=== PATIENT | male | born 1965 | race Caucasian/White ===

== ENCOUNTER 2022-04-24 13:33 | Outpatient (CLI) | payer OTHER, SELFPAY ==
--- NOTE | ~2022-04-24 | CT_ITS ---
EXAMINATION: CT lung screening DATE: 04/24/2022 14:21 INDICATION: Personal history of nicotine dependence, current smoker with 20 pack year history TECHNIQUE: Computed tomography (CT) of the chest was performed without intravenous contrast. The dose -length product (DLP) was 147.57 mGy-cm. Automated exposure control and iterative reconstruction tech [employer] were employed. COMPARISON: None FINDINGS: There is a 2 mm nodule of the right middle lobe. Calcified pulmonary nodules are consistent with old granulomatous disease. The lungs are free of acute opacities. No pleural effusion or pneumo thorax. There is a small sliding hiatal hernia. No pathologically enlarged thoracic lymph nodes are i dentified. The heart size is normal. Calcified coronary artery atherosclerosis is noted. There is mod erate thoracic spondylosis. IMPRESSION: 1. Lung-RADS category 2: Benign appearance or behavior. Continue annual screening with noncontrast lo w-dose chest CT in 12 months. Reviewed, dictated and finalized at location B. BILITATION TECH IMPRESSION: 1. Lung-RADS category 2: Benign appearance or behavior. Continue annual screeni ng with noncontrast low-dose chest CT in 12 months.
--- NOTE | ~2022-04-24 | US_ITS ---
EXAMINATION: US soft tissue LE RT DATE: 04/24/2022 14:36 INDICATION: Interval right thigh pain TECHNIQUE: Multiple grayscale and Doppler ultrasound images of the region of concern at the inner rig ht thigh were obtained. COMPARISON: None FINDINGS: Normal appearance to the subcutaneous fat and underlying musculature at the region of concern. Lesser flow seen on color Doppler in a pair of vessels along side the muscle likely the right superficial f emoral artery and vein. No abnormal masses or fluid collections identified. IMPRESSION: 1. Unremarkable study with no abnormal masses or fluid collections identified at the region of concer n at the inner right thigh. Reviewed, dictated and finalized at location A. [employer] IMPRESSION: 1. Unremarkable study with no abnormal masses or fluid collections identified a t the region of concern at the inner right thigh.
== END 2022-04-24 13:34 | disposition home or self-care (01) ==
PROVIDERS: PCP Internal Medicine; Visit Provider Internal Medicine
DX: Z12.2 Encounter for screening for malignant neoplasm of respiratory organs (principal); Z87.891 Personal history of nicotine dependence; M79.651 Pain in right thigh
CPT/HCPCS: 71271; 76882

== ENCOUNTER 2022-06-07 08:17 | Emergency (ER) | payer OTHER, SELFPAY ==
[2022-06-07 08:26] VITALS: BP 113/72; PULSE 75; RESP 16; TEMP 35.8; O2SAT 99
--- NOTE | 2022-06-07 08:28 | ED.EAR ---
HPI - Ear Problem General Chief complaint: Upper Respiratory Infection Stated complaint: Right ear pressure Time Seen by Provider: 06/07/22 08:37 Source: patient and RN notes reviewed Mode of arrival: ambulatory Limitations: no limitations History of Present Illness HPI Narrative: 56-year-old male presents with concern for right ear pressure. He reports he also has runny nose, stuffy nose and cough. He reports symptoms for 2-3 days. He denies taking any [id number] medications for his symptoms. MD Complaint: ear pain Related Data Allergies Allergy/AdvReac Type Severity Reaction Status Date / Time No Known Allergies Allergy Verified 06/07/22 08:32 Review of Systems Review of Systems: CONSTITUTIONAL: Denies malaise, chills, sweats, or fever. EYES: Denies visual changes, redness, or discharge. ENT: Reports rhinorrhea, congestion. Denies sinus pain, and sore throat. Reports right ear pain CARDIOVASCULAR: Denies chest pain, palpitations, or edema. RESPIRATORY: Reports cough. Denies dyspnea. GASTROINTESTINAL: Denies abdominal pain, nausea, vomiting, diarrhea SKIN: Denies rash or itching. MUSCULOSKELETAL: Denies myalgia. NEUROLOGIC: Denies headache. All systems reviewed & are unremarkable except as noted in HPI and below PMFSH Past Medical History Medical History Afib Diverticulitis Tobacco use Tobacco use Surgical History Surgical History History of appendectomy History of removal of skin mole History of vasectomy Family History Family History Mother Family history of schizophrenia Social History Social History (Updated 04/18/22 @ 10:58 by Lena Arriaza MA) Smoking packs per day: 1 Smoking cigarettes per day: 20.0 Years smoked: 30 Smoking pack-years: 30.00 Smoking status: Current every day smoker Tobacco type: cigarettes Second hand tobacco smoke exposure: No Alcohol intake: never Substance use: never Substance use type: does not use Lack of Transportation: No Lack of Food: Never True Current Housing: I Have Housing Concerned About Future Housing: No Difficulty Paying Gas/Electric Bills: No Difficulty Paying for Meds: No Currently Unemployed: No Education: Bachelor's Degree Difficulty w/ Childcare or Family Care: No Comments At time of signature, agree with nursing past medical, surgical, social and family history. There is no relevant family history pertinent to the presenting complaint Exam Narrative: GENERAL: Well-appearing, well-nourished, and in no acute distress. HEAD: Normocephalic EYES: PERRLA, conjunctivae clear ENT: Nares clear, turbinates edematous, clear discharge. Mucous membranes moist. TM pearly solis with dull light reflex, right TM erythematous and bulging; no tragal tenderness. Oropharynx not erythematous without lesions. Tonsils not enlarged and without exudate, no drooling, no hoarseness, no trismus, uvula midline. NECK: Supple. No lymphadenopathy CHEST: Clear to auscultation, breath sounds equal. No wheezing, rhonchi, rales, or stridor. No respiratory distress, speaks in full sentences. HEART: Regular rate and rhythm. No murmur heard. SKIN: Warm, dry, no rash. NEURO: Alert and oriented x3. PSYCH: Normal mood and affect Course Course Emergency Course: Patient is aware of diagnosis, understands and agrees to treatment plan. Anticipatory guidance given. Patient agrees to follow-up as directed and is aware of reasons to seek care at the emergency department. Portions of this record may have been created with voice recognition software Level of Care: Express Care Visit Vital Signs Vital signs: Vital Signs Temperature 96.4 F L 06/07/22 08:26 Pulse Rate 75 06/07/22 08:26 Respiratory Rate 16 06/07/22 08:26 Blood Pressure 113/72 06/07/22 08:26 Pulse Oximetry 99 06/07/22 08:26 Oxygen Delivery Room Air
== END 2022-06-07 08:45 | disposition home or self-care (01) ==
PROVIDERS: Emergency Provider Nurse Practitioner; PCP Internal Medicine
DX: H66.91 Otitis media, unspecified, right ear (principal); F17.210 Nicotine dependence, cigarettes, uncomplicated; I48.91 Unspecified atrial fibrillation
CPT/HCPCS: 99213; G0463

== ENCOUNTER 2023-02-01 09:42 | Inpatient (IN) | payer OTHER, SELFPAY ==
[2023-02-01] VITALS (19 sets, daily range): BP systolic 101–135; BP diastolic 55–78; PULSE 100–128; RESP 12–21; TEMP 36.2–37.4; O2SAT 96–100; BMI 31.2
--- NOTE | ~2023-02-01 | CT_ITS ---
EXAMINATION: CT abdomen pelvis w con DATE: 02/01/2023 12:58 INDICATION: Left abdominal pain. Gastrointestinal hemorrhage. TECHNIQUE: Computed tomography (CT) of the abdomen and pelvis was performed with 100 mL Omnipaque 350 intravenous contrast. Automated exposure control and iterative reconstruction technique were employe d. The dose-length product was 899.74 mGy-cm. COMPARISON: CT abdomen and pelvis 05/17/2017 FINDINGS: The visualized portions of the lung bases demonstrate mild atelectasis. No pleural effusion . The heart size is normal. No pericardial effusion. There is a small sliding hiatal hernia. There is diffuse hepatic steatosis. The gallbladder, spleen, pancreas, adrenal glands, and left kidney are no rmal. There is an 11 mm cyst in left kidney. There is a 3 mm stone in right kidney. There are scatter ed diverticula in the colon. There is fat stranding around a sigmoid diverticulum, consistent with ac [place] diverticulitis. There are changes of appendectomy. There are changes of ventral hernia repair. Th e prostate is moderately enlarged. There are no pathologically enlarged lymph nodes. There is no free intraperitoneal fluid. There is a right inguinal hernia containing fat. There is mild thoracic and l umbar spondylosis. IMPRESSION: 1. Acute sigmoid diverticulitis. No perforation or abscess. 2. Small sliding hiatal hernia. Reviewed, dictated and finalized at location A.
--- NOTE | ~2023-02-01 | NM_ITS ---
EXAMINATION: NM GI bleeding DATE: 02/03/2023 12:42 INDICATION: Gastrointestinal hemorrhage. TECHNIQUE: 23.4 mCi Tc 99m in vitro labeled red cells was administered intravenously. Scintigraphic images of the abdomen were obtained for one hour. COMPARISON: CT abdomen and pelvis 02/01/2023 FINDINGS: No pattern of abnormal activity is seen in the abdomen or pelvis to suggest gastrointestina l hemorrhage. IMPRESSION: 1. No evidence of active gastrointestinal hemorrhage. Reviewed, dictated and finalized at location A.
[2023-02-01 10:41] LABS: Basophils Percent Auto 0.4 % (0.2-1.2); Eosinophils Absolute Auto 0.4 K/mm3 (0-0.3); Hematocrit 21.7 % (42.0-52.0); Hemoglobin 7.2 g/dL (14.0-18.0); Immature Granulocyte Absolute 0.13 K/mm3 (0.00-0.031); Immature Granulocyte Percent A 1.4 % (0-0.5); Lymphocytes Absolute Auto 2.78 K/mm3 (0.9-3.2); Lymphocytes Percent Auto 29.2 % (18.3-44.2); Mean Corpuscular HGB Conc 33.2 g/dl (32-36); Mean Corpuscular Hemoglobin 31.7 pg (26-34); Mean Corpuscular Volume 95.6 fl (80-100); Mean Platelet Volume 9.7 fl (7.4-10.4); Monocytes Absolute Auto 1.1 K/mm3 (0.1-0.6); Monocytes Percent Auto 11.2 % (2.6-8.5); Neutrophils Absolute Auto 5.1 K/mm3 (1.3-6.7); Neutrophils Percent Auto 53.8 % (45.5-73.1); Nucleated Red Blood Cells Absolute Auto 0.1 K/mm3 (0.0-0.012); Nucleated Red Blood Cells Perc 0.5 % (0.0-0.2); Platelet Count Result 237 k/mm3 (150-375); Red Blood Count 2.27 M/mm3 (4.6-6.20); White Blood Count 9.5 K/mm3 (4.5-10.0)
[2023-02-01 10:51] LABS: Alanine Aminotransferase 42 U/L (6-50); Albumin Level 3.3 g/dL (3.5-5.1); Alkaline Phosphatase 44 U/L (38-126); Anion Gap 2 mmol/L (8-16); Aspartate Amino Transferase 30 U/L (17-59); Bilirubin,Total 0.2 mg/dL (0.2-1.3); Blood Urea Nitrogen 20 mg/dL (9-20); Calcium 7.9 mg/dL (8.4-10.2); Carbon Dioxide 24 mmol/L (22-30); Chloride 106 mmol/L (98-107); Estimated CRCL calculation 85 ml/min; Estimated Glomerular Filt Rate > 60; Glucose 179 mg/dL (65-110); Potassium 4.1 mmol/L (3.4-5.0); Sodium 132 mmol/L (137-145)
--- NOTE | 2023-02-01 12:14 | ED.GENADULT ---
HPI - General Adult General Chief complaint: GI Bleed <DAVID Maria Last Filed: 02/01/23 17:50> Stated complaint: bloody stool for 4 days <DAVID Maria Last Filed: 02/01/23 17:50> Time Seen by Provider: 02/01/23 11:53 <DAVID Maria Last Filed: 02/01/23 17:50> Source: patient <DAVID Maria Last Filed: 02/01/23 17:50> Mode of arrival: ambulatory <DAVID Maria Last Filed: 02/01/23 17:50> Limitations: no limitations <DAVID Maria Last Filed: 02/01/23 17:50> History of Present Illness HPI narrative: This is a 57-year-old male who presents to the ED with chief complaint of bloody stools for the past 4 days. He states he has had multiple stools per day that have purple/red blood in the toilet and feels that these most solid parts of the stool are black in color. He reports some associated left lower quadrant pain and states he has had diverticulitis in the past. He states pain is minimal at this point. He reports visiting [place] last week and had a lot of oysters while he was there. States symptoms started about 2 days after returning back from there. <DAVID Maria Last Filed: 02/01/23 17:50> Related Data Home medications: Home Medications Medication Instructions Recorded Confirmed multivit with minerals-iron 18 1 tablet PO DAILY 02/01/23 02/01/23 mg-folic ac 400 mcg-vit K 25 mcg tablet (Adults Multivitamin) omega-3 fatty acids 500 mg capsule 500 mg PO DAILY 02/01/23 02/01/23 <DAVID Maria Last Filed: 02/01/23 17:50> Allergies/adverse reactions: Allergies Allergy/AdvReac Type Severity Reaction Status Date / Time No Known Allergies Allergy Verified 10/24/22 11:09 <DAVID Maria Last Filed: 02/01/23 17:50> Review of Systems Review of Systems: All systems as dictated in HPI <Reinaldo Beaver PA-C - Last Filed: 02/01/23 17:50> PMFSH Past Medical History Medical History: Medical History Afib Diverticulitis Tobacco use Tobacco use <Reinaldo Beaver PA-C - Last Filed: 02/01/23 17:50> Surgical History Surgical History: Surgical History History of appendectomy History of removal of skin mole History of vasectomy <Reinaldo Beaver PA-C - Last Filed: 02/01/23 17:50> Family History Family History: Family History Mother Family history of schizophrenia <Reinaldo Beaver PA-C - Last Filed: 02/01/23 17:50> Social History Social History: Social History (Updated 04/18/22 @ 10:58 by Lena Arriaza MA) Smoking packs per day: 0.25 Smoking cigarettes per day: 5.0 Years smoked: 30 Smoking pack-years: 7.50 Smoking status: Current every day smoker Second hand tobacco smoke exposure: No Alcohol intake: never Substance use: never Substance use type: does not use Lack of Transportation: No Lack of Food: Never True Current Housing: I Have Housing Concerned About Future Housing: No Difficulty Paying Gas/Electric Bills: No Difficulty Paying for Meds: No Currently Unemployed: No Education: Bachelor's Degree Difficulty w/ Childcare or Family Care: No Spiritual care concerns: No <Reinaldo Beaver PA-C - Last Filed: 02/01/23 17:50> Exam Narrative: GENERAL: Well-appearing, well-nourished, and in no acute distress. HEAD: Normocephalic, atraumatic. EYES: PERRLA and EOMI. ENT: Nares clear, no rhinorrhea or epistaxis. Mucous membranes moist. Oropharynx without tonsillar hypertrophy exudate or other lesions. NECK: Supple. No adenopathy or masses. CHEST: No respiratory distress. Clear to auscultation. No wheezes rales or rhonchi HEART: Regular rate and rhythm. No murmur heard. Normal peripheral pulses. ABDOMEN: Mild left lower and left upper quadrant tenderness present. Soft, nondistended, normal active
[2023-02-01 12:58] LABS: Lactic Acid Reflex 1.7 mmol/L (0.7-2.0)
[2023-02-01] MEDS: PIPERACILLIN/TAZ 4.5G/NS 100ML 4.5 GM/100 ML BAG IVPB (14:54)
[2023-02-01 15:05] LABS: Hematocrit 19.5 % (42.0-52.0); Hemoglobin 6.4 g/dL (14.0-18.0)
--- NOTE | 2023-02-01 17:17 | ADMGEN ---
This patient, Xander Negrete, was admitted to 3 [facility] Surg Room 327-01. Patient/family oriented to hospital policies and general routines including ID bracelet, bed and alarms, visiting hours, pain management, procedures, bathroom and other care routines, personal items, smoking policy, room service/diet, and visiting hours. Information on how to activate the Rapid Response Team has been discussed. Patient/Family are encouraged to report perceived risks to care and to ask questions if they do not understand what they are told or what they should do.
[2023-02-01] MEDS: TUBING, BLOOD PLUM PUMP TUBING 1 EACH XX (17:54)
[2023-02-01] MEDS: SODIUM CHLORIDE 0.9% IV 250 ML 30 ML IV CONT (17:54)
--- NOTE | 2023-02-01 21:30 | PM.IMHP ---
H&P: HPI History of Present Illness Date/Time: 02/01/23 21:30 Chief Complaint: Bloody stools Narrative: This is a 57-year-old male patient who has a history of diverticulosis with diverticulitis. He has also had some colon polyps as well as some internal hemorrhoids in the past. He is seen Dr. Luna as well as Dr. Blue in the past. The patient stated that he has had bloody stools for last 4 days. He has had multiple stools that were maroon color. The patient stated that he did attempt to see a physician but could not get in anywhere. The patient also complained of having some left lower quadrant pain. The patient recently was and [place] and ate a lot of raw oysters air. His pain started approximately 2 days after returning home from [place]. His H&H was 7.2 and 21.7. No recent labs for comparison. The patient received a unit of packed red blood cells. His H&H was 6.4 and 19.5. Patient had a very large explosive bloody diarrhea stool and repeat H&H was 6.7 and 19.8. The patient was given a bolus of IV fluids. The patient feels dizzy and has tachycardia. GI has been consulted from ER. Abdominal pelvis CT was read as the following1. Acute sigmoid diverticulitis. No perforation or abscess. 2. Small sliding hiatal hernia. The patient was given Zosyn, IV fluids and a unit of packed red blood cells. The patient is being admitted to observation status on the date of service of 02/01/2023. Review of Systems Review of Systems: All systems reviewed & are unremarkable except as noted in HPI and below Constitutional: Constitutional: Reports as per HPI and Reports no additional constitutional complaints Eyes: Eyes: Reports as per HPI and Reports no additional eye complaints ENT: Reports system reviewed and no additional complaints, except as documented and Reports Normal hearing present Cardiovascular: Cardiovascular: Reports no additional cardiovascular complaints Respiratory: Respiratory: Reports no additional respiratory complaints and Reports no additional respiratory complaints Gastrointestinal: Gastrointestinal: Reports as per HPI and Reports no additional gastrointestinal complaints Musculoskeletal: Musculoskeletal: Reports no additional musculoskeletal complaints Integumentary/Breasts: Skin/Breast: Reports system reviewed and no additional complaints, except as docu and Reports as per HPI Neurologic: Reports system reviewed and no additional complaints, except as documented, Reports as per HPI and Reports Normal hearing present Psychiatric: Psychiatric: Reports no additional psychiatric complaints and Reports as per HPI Endocrine: Endocrine: Reports no additional endocrine complaints Hematologic/Lymphatic: Hematologic/Lymphatic: Reports no additional hematologic/lymphatic complaints Allergic/Immunologic: Allergic/Immunologic: Reports no additional allergic/immunologic complaints [facility] Past Medical History Medical History Afib One time episode and has not recurred. Degenerative disc disease Diverticulitis History of squamous cell carcinoma Removed from chest and face Hyperlipidemia Kidney stones BLOUNT (nonalcoholic steatohepatitis) Tobacco use Tobacco use Surgical History Surgical History (Updated 02/02/23 @ 00:25 by Karyn Arzate NP) H/O colonoscopy with polypectomy H/O hernia repair History of appendectomy History of removal of pigmented skin lesion History of removal of skin mole History of vasectomy Family History Family History Mother Family history of schizophrenia Social History Social History (Updated 02/02/23 @ 00:22 by Karyn Arzate NP) Social History: The patient is and has 3 children. 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 His is the durable power trademark attorney for healthcare. He smokes approximately 7 cigarettes a day if that. He denies any alcohol marijuana or illicit drugs. His wif
[2023-02-01 22:57] LABS: Hematocrit 19.8 % (42.0-52.0); Hemoglobin 6.7 g/dL (14.0-18.0)
[2023-02-02] VITALS (25 sets, daily range): BP systolic 101–136; BP diastolic 54–80; PULSE 77–123; RESP 12–22; TEMP 35.6–37.6; O2SAT 93–100
--- NOTE | 2023-02-02 00:31 | PC.NURSE ---
Pt. had a large BM with copious amount of blood in stool. Called Dr. Blue to notify.
[2023-02-02 00:57] LABS: Hematocrit 19.1 % (42.0-52.0); Hemoglobin 6.3 g/dL (14.0-18.0)
[2023-02-02] MEDS: SODIUM CHLORIDE 0.9% IV 1,000 ML 999 ML IV CONT (01:10)
[2023-02-02] MEDS: PIPERACILLN/TAZ 3.375GM/NS50ML 3.375 GM/50 ML BAG IVPB ×4 (01:56→17:55)
[2023-02-02] MEDS: SODIUM CHLORIDE 0.9% IV 250 ML 30 ML IV CONT ×2 (04:45→14:00)
[2023-02-02 07:02] LABS: Hematocrit 20.2 % (42.0-52.0); Hemoglobin 6.8 g/dL (14.0-18.0)
[2023-02-02 07:29] LABS: Glucose Point of Care 133 mg/dl (65-105)
[2023-02-02 07:34] LABS: Mean Platelet Volume 10.1 fl (7.4-10.4); Platelet Count Result 175 k/mm3 (150-375)
[2023-02-02 07:43] LABS: Alanine Aminotransferase 37 U/L (6-50); Albumin Level 2.6 g/dL (3.5-5.1); Alkaline Phosphatase 32 U/L (38-126); Anion Gap 0 mmol/L (8-16); Aspartate Amino Transferase 31 U/L (17-59); Bilirubin,Total 0.2 mg/dL (0.2-1.3); Blood Urea Nitrogen 16 mg/dL (9-20); Calcium 7.2 mg/dL (8.4-10.2); Carbon Dioxide 24 mmol/L (22-30); Chloride 107 mmol/L (98-107); Estimated CRCL calculation 107 ml/min; Estimated Glomerular Filt Rate > 60; Glucose 131 mg/dL (65-110); Magnesium 1.9 mg/dL (1.6-2.3); Potassium 3.9 mmol/L (3.4-5.0); Sodium 131 mmol/L (137-145)
[2023-02-02 07:55] LABS: Prothrombin Time 13.5 Seconds (11.1-14.7)
[2023-02-02 07:58] LABS: Fibrinogen 264 mg/dl (215-510)
[2023-02-02 08:08] LABS: D Dimer 0.31 ug/mL (<0.48)
--- NOTE | 2023-02-02 10:11 | WPDGICN ---
Assessment and Plan Assessment and plan (1) LGI bleed: Code(s): K92.2 - Gastrointestinal hemorrhage, unspecified Status: Acute Assessment and Plan: Patient with lower GI bleeding. Most likely felt to be from diverticular disease. Colon will be arranged to exclude any additional bleeding site. Nuclear but medicine bleeding scan will be ordered hopefully this can help pinpoint bleeding site. Continue to transfuse as necessary. Consider supportive care. Patient will be maintained on antibiotics for presumed diverticulitis. As suggested by recent imaging studies. Because of ongoing bleeding patient will be monitored in more acute setting. (2) Diverticulitis: Code(s): K57.92 - Diverticulitis of intestine, part unspecified, without perforation or abscess without bleeding Status: Acute Assessment and Plan: Diverticulitis noted on CT scan. Plan for broad-spectrum antibiotics. Long discussion with patient over risks of colonoscopy in the face of active diverticulitis. Discussed with primary care service. Plan to proceed with colonoscopy tomorrow in preparation today. GI Consult Note Consult date/time: 02/02/23 10:11 Reason for consult: Lower GI bleeding HPI: Xander Negrete is a 57 year old male I am asked to see at the request of the emergency room. Patient in usual state of health. Over the last 4-5 days he has had blood in his stools. Described as maroon bloody in nature. He states a short time ago was in [place]. No one else on the trip became ill. In the past he has had diverticulitis. He developed rather significant bloody stools for this reason presented to the emergency room yesterday after 4 days of blood in his stools. Patient was found to have a hemoglobin of 6.5. CT scan suggested possible uncomplicated diverticulitis. Patient is known to have had diverticulitis in the past. He has prior history of umbilical hernia repair. After transfusion of 2units of packed red blood cells his hemoglobin has remained stable. Patient did have bloody stools at midnight and no additional blood in his stools as of 10:00 a.m. this morning. He does feel as though he may have been need to pass additional stools. Current vital signs appears stable. Patient has never had lower GI bleeding previously. Previous colonoscopy 5 years ago Revealed diverticulosis and internal hemorrhoids.. He has a distant history of colon polyps. In 2006. Review of Systems Review of Systems: Review of systems noncontributory. [facility] Past Medical History Medical History Afib One time episode and has not recurred. Degenerative disc disease Diverticulitis History of squamous cell carcinoma Removed from chest and face Hyperlipidemia Kidney stones BLOUNT (nonalcoholic steatohepatitis) Tobacco use Tobacco use Surgical History Surgical History (Updated 02/02/23 @ 00:25 by Karyn Arzate NP) H/O colonoscopy with polypectomy H/O hernia repair History of appendectomy History of removal of pigmented skin lesion History of removal of skin mole History of vasectomy Family History Family History Mother Family history of schizophrenia Social History Social History (Updated 02/02/23 @ 00:22 by Karyn Arzate NP) Social History: The patient is and has 3 children. 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 His is the durable power disability attorney for healthcare. He smokes approximately 7 cigarettes a day if that. He denies any alcohol marijuana or illicit drugs. His is the durable power disability attorney for healthcare. Code status full code Smoking packs per day: 0.25 Smoking cigarettes per day: 5.0 Years smoked: 30 Smoking pack-years: 7.50 Smoking status: Current every day smoker Second hand tobacco smoke exposure: No Alcohol intake: never Substance use: never Substance use type: does
[2023-02-02 11:16] LABS: Glucose Point of Care 147 mg/dl (65-105)
--- NOTE | 2023-02-02 12:07 | PM.IMPN ---
Progress Note: A&P Assessment and Plan (1) Acute blood loss anemia: Code(s): D62 - Acute posthemorrhagic anemia Status: Acute Assessment and Plan: Transfused to hemoglobin over 8. DIC panel is unremarkable. Source of bleeding appears to be isolated lower GI bleeding likely diverticular as there are CT findings of diverticulitis. Repeat hemoglobin 7.9 after 3rd unit PRBCs. One additional unit is ordered and patient continues to have q.6 H&H ordered. (2) LGI bleed: Code(s): K92.2 - Gastrointestinal hemorrhage, unspecified Status: Acute Assessment and Plan: See 1. (3) Diverticulitis: Code(s): K57.92 - Diverticulitis of intestine, part unspecified, without perforation or abscess without bleeding Status: Acute Assessment and Plan: See 1. Patient on Zosyn IV. (4) Tobacco use: Code(s): Z72.0 - Tobacco use Status: Acute Assessment and Plan: Nicotine patch ordered (5) Type 2 diabetes mellitus without complication, without long-term current use of insulin: Code(s): E11.9 - Type 2 diabetes mellitus without complications Status: Acute Assessment and Plan: ACHS fingerstick glucose with corrective insulin and hypoglycemic orders p.r.n. Plan Transfuse to keep hemoglobin above 8 Nuclear med GI bleeding scan Discussed plan with Gastroenterology, patient will undergo bowel prep today and colonoscopy tomorrow. Time Spent With Patient Time: 75 minutes including time spent discussing case with consulting service, bedside evaluation chart review and documentation Time with patient: Greater than 35 minutes Subjective Date/time seen: 02/02/23 07:30 Interval history: 02/02: This is a 57-year-old male patient admitted to the hospital for GI bleeding ongoing for the last 4-5 days. Patient states that he had some abdominal aching there was concern whether he may have colitis from food-borne illness verses diverticulitis with diverticular bleed. Patient reports he had an episode of lightheadedness dizziness and significant blood loss with diarrheal stools just after midnight. He has received a couple units of PRBCs prior to evaluation this morning. Patient denies any fever chills. He denies anybody else getting ill having eaten the same things he had. He does report multiple episodes of diverticulitis without GI bleeding in the past. Review of Systems Review of Systems: All systems reviewed & are unremarkable except as noted in HPI and below Exam Narrative: GENERAL: Generally well appearing, alert and oriented, in no apparent distress. He is pleasant and conversant in full sentences. HEENT: Pupils are equally round and briskly reactive to light. Extraocular muscles are intact. Oral mucous membranes are moist without lesions. NECK: The patient has no noted JVD. No adenopathy is appreciated. CHEST/LUNGS: Lungs are clear bilaterally without rhonchi, rales, or wheezes. There is no subcutaneous air appreciated. There is no tenderness to the chest wall. HEART: The patient has a regular rate and rhythm. No murmurs, rubs, or gallops are appreciated. Distal pulses are 2+. No carotid bruits appreciated. ABDOMEN: The patient?s abdomen is soft, nontender, and nondistended. Bowel sounds are positive. There are no peritoneal signs. EXTREMITIES: The patient has no peripheral edema. There is no focal long bone tenderness or deformity. SKIN: The patient?s skin is warm and dry, mildly pale. PSYCHIATRIC: The patient has normal mental status and has an appropriate affect. NEUROLOGIC: There are no gross deficits to the cranial nerves. Patient ambulates with steady gait. OTHER: Ludwig red blood with clots in stools. Objective Data Vital Signs Vital Signs: Vital Signs - 24 hr 02/01/23 13:17 02/01/23 13:18 02/01/23 13:30 Temperature Pulse Rate 110 H 104 H 100 Respiratory Rate 16 16 15 Blood Pressure 135/78 Pulse Oximetry 100 100 100 Oxygen Delivery
[2023-02-02 12:32] LABS: Hemoglobin 7.9 g/dL (14.0-18.0)
--- NOTE | 2023-02-02 13:23 | PC.NURSE ---
This patient, Xander Negrete, was transferred to IMU 210 on 02/02/23 at 1315. Personal belongings sent with patient. Report given to Benja ANDERSON. Appropriate documentation sent with patient. Both IV sites intact at the time of transfer.
[2023-02-02] MEDS: PEG (High)/E-LYTE SOLN 4,000 ML BTL 4000 ML PO (13:29)
[2023-02-02 16:57] LABS: Glucose Point of Care 113 mg/dl (65-105)
[2023-02-02 19:18] LABS: Hemoglobin 6.7 g/dL (14.0-18.0)
[2023-02-02 19:19] LABS: Hematocrit 19.9 % (42.0-52.0)
[2023-02-02 20:23] LABS: Glucose Point of Care 143 mg/dl (65-105)
[2023-02-02] MEDS: TUBING, BLOOD PLUM PUMP TUBING 1 EACH XX (20:29)
[2023-02-03] VITALS (26 sets, daily range): BP systolic 87–137; BP diastolic 31–77; PULSE 77–118; RESP 8–20; TEMP 36.6–37.1; O2SAT 94–100
[2023-02-03] MEDS: SODIUM CHLORIDE 0.9% IV 250 ML 30 ML IV CONT ×2 (00:07→06:33)
[2023-02-03] MEDS: PIPERACILLN/TAZ 3.375GM/NS50ML 3.375 GM/50 ML BAG IVPB ×5 (00:23→23:11)
[2023-02-03 01:35] LABS: Hematocrit 19.5 % (42.0-52.0); Hemoglobin 6.6 g/dL (14.0-18.0)
[2023-02-03] MEDS: TUBING, BLOOD PLUM PUMP TUBING 1 EACH XX ×2 (02:35→12:29)
--- NOTE | 2023-02-03 04:36 | PC.NURSE ---
Blood bank issued blood. This nurse brought to unit and another patient was to be emergently intubated. [facility] needed to be with the other patient for transfer to ICU and she took the blood. After transfer complete this nurse went back to get blood and told it could not be reissued with a new issue time. Will speak to blood bank in regards to how long the blood can run and verify with grape pruner Brandy.
[2023-02-03 08:32] LABS: Basophils Percent Auto 0.4 % (0.2-1.2); Eosinophils Absolute Auto 0.1 K/mm3 (0-0.3); Eosinophils Percent Auto 0.9 % (0-4.4); Hematocrit 23.2 % (42.0-52.0); Hemoglobin 7.7 g/dL (14.0-18.0); Immature Granulocyte Absolute 0.15 K/mm3 (0.00-0.031); Lymphocytes Absolute Auto 1.83 K/mm3 (0.9-3.2); Lymphocytes Percent Auto 24.3 % (18.3-44.2); Mean Corpuscular HGB Conc 33.2 g/dl (32-36); Mean Corpuscular Hemoglobin 30.9 pg (26-34); Mean Corpuscular Volume 93.2 fl (80-100); Mean Platelet Volume 9.5 fl (7.4-10.4); Monocytes Absolute Auto 0.8 K/mm3 (0.1-0.6); Monocytes Percent Auto 10.1 % (2.6-8.5); Neutrophils Absolute Auto 4.7 K/mm3 (1.3-6.7); Neutrophils Percent Auto 62.3 % (45.5-73.1); Nucleated Red Blood Cells Absolute Auto 0.1 K/mm3 (0.0-0.012); Nucleated Red Blood Cells Perc 1.5 % (0.0-0.2); Platelet Count Result 155 k/mm3 (150-375); Red Blood Count 2.49 M/mm3 (4.6-6.20); Red Cell Distribution Width 13.5 % (11.5-14.5); White Blood Count 7.5 K/mm3 (4.5-10.0)
[2023-02-03 08:41] LABS: Alanine Aminotransferase 31 U/L (6-50); Albumin Level 2.5 g/dL (3.5-5.1); Alkaline Phosphatase 30 U/L (38-126); Anion Gap 1 mmol/L (8-16); Aspartate Amino Transferase 26 U/L (17-59); Bilirubin,Total 0.3 mg/dL (0.2-1.3); Blood Urea Nitrogen 15 mg/dL (9-20); Carbon Dioxide 27 mmol/L (22-30); Chloride 105 mmol/L (98-107); Estimated CRCL calculation 96 ml/min; Estimated Glomerular Filt Rate > 60; Glucose 123 mg/dL (65-110); Magnesium 1.9 mg/dL (1.6-2.3); Phosphorus 3.9 mg/dL (2.5-4.5); Potassium 3.4 mmol/L (3.4-5.0); Sodium 133 mmol/L (137-145)
[2023-02-03 08:42] LABS: INR 1.1; Partial Thromboplastin Time 21.4 SECONDS (22.3-36.8)
--- NOTE | 2023-02-03 09:30 | PM.IMPN ---
Progress Note: A&P Assessment and Plan (1) Acute blood loss anemia: Code(s): D62 - Acute posthemorrhagic anemia Status: Acute Assessment and Plan: Transfused to hemoglobin over 8. DIC panel is unremarkable. Source of bleeding appears to be isolated lower GI bleeding likely diverticular as there are CT findings of diverticulitis. Repeat hemoglobin 7.9 after 3rd unit PRBCs. One additional unit is ordered and patient continues to have q.6 H&H ordered. 02/03: Hemoglobin 7.7 this morning. Sixth unit of PRBCs to transfuse. Continue Q6H H&H checks. GI bleeding scan to be completed this morning and colonoscopy this afternoon. (2) LGI bleed: Code(s): K92.2 - Gastrointestinal hemorrhage, unspecified Status: Acute Assessment and Plan: See 1. (3) Diverticulitis: Code(s): K57.92 - Diverticulitis of intestine, part unspecified, without perforation or abscess without bleeding Status: Acute Assessment and Plan: See 1. Patient on Zosyn IV. (4) Tobacco use: Code(s): Z72.0 - Tobacco use Status: Acute Assessment and Plan: Nicotine patch ordered (5) Type 2 diabetes mellitus without complication, without long-term current use of insulin: Code(s): E11.9 - Type 2 diabetes mellitus without complications Status: Acute Assessment and Plan: ACHS fingerstick glucose with corrective insulin and hypoglycemic orders p.r.n. Plan Transfuse to keep hemoglobin above 8 Nuclear med GI bleeding scan Colonoscopy this afternoon Time Spent With Patient Time with patient: Greater than 35 minutes Subjective Date/time seen: 02/03/23 09:30 Interval history: 02/02: This is a 57-year-old male patient admitted to the hospital for GI bleeding ongoing for the last 4-5 days. Patient states that he had some abdominal aching there was concern whether he may have colitis from food-borne illness verses diverticulitis with diverticular bleed. Patient reports he had an episode of lightheadedness dizziness and significant blood loss with diarrheal stools just after midnight. He has received a couple units of PRBCs prior to evaluation this morning. Patient denies any fever chills. He denies anybody else getting ill having eaten the same things he had. He does report multiple episodes of diverticulitis without GI bleeding in the past. 02/03: Patient had another episode of bloody diarrhea overnight. This morning was up to the bathroom had small amount of bloody stools but had an elevated heart rates and became dizzy after bending over to dress himself. Patient denies any shortness of breath fever chills cough chest pain abdominal pain. Review of Systems Review of Systems: All systems reviewed & are unremarkable except as noted in HPI and below Exam Narrative: GENERAL: Generally well appearing, mildly pale, alert and oriented, in no apparent distress. He is pleasant and conversant in full sentences. HEENT: Pupils are equally round and briskly reactive to light. Extraocular muscles are intact. Oral mucous membranes are moist without lesions. NECK: The patient has no noted JVD. No adenopathy is appreciated. CHEST/LUNGS: Lungs are clear bilaterally without rhonchi, rales, or wheezes. There is no subcutaneous air appreciated. There is no tenderness to the chest wall. HEART: The patient has a regular rate and rhythm. No murmurs, rubs, or gallops are appreciated. Distal pulses are 2+. ABDOMEN: The patient?s abdomen is soft, nontender, and nondistended. Bowel sounds are positive. There are no peritoneal signs. EXTREMITIES: The patient has no peripheral edema. There is no focal long bone tenderness or deformity. SKIN: The patient?s skin is warm and dry, mildly pale. PSYCHIATRIC: The patient has normal mental status and has an appropriate affect. NEUROLOGIC: There are no gross deficits to the cranial nerves. Patient ambulates with steady gait. Objective Data Vital Signs Vital Signs
--- NOTE | 2023-02-03 10:55 | PC.NURSE ---
Pt to nuclear medicine for GI bleed scan, via wheelchair. Family at bedside
--- NOTE | 2023-02-03 12:23 | PC.NURSE ---
Pt returned from nuclear medicine via wheelchair. No issues noted
--- NOTE | 2023-02-03 13:15 | PC.NURSE ---
To GI Lab per [ric ], IV [ locked]. Report given to [MONICA Paredes ]. Family at bedside
[2023-02-03 13:18] LABS: Hematocrit 25.4 % (42.0-52.0); Hemoglobin 8.6 g/dL (14.0-18.0)
--- NOTE | 2023-02-03 13:28 | WPDANESEPPF ---
Anes - Initial Pre Proc Eval Procedure: Operation Date: 02/03/23 14:30 Proposed Procedures p Colonoscopy - Danny Blue MD Date/Time: 02/03/23 13:28 Surgeon: Felicity De León MD Pre Op Diagnosis: Acute GI Bleed/Colitis Patient Data Age: 57 Gender: M Height: 1.78 m Weight: 98.9 kg Last Vital Signs Temp 36.6 C 02/03/23 12:00 Pulse 88 02/03/23 12:00 Resp 16 02/03/23 12:00 BP 123/70 02/03/23 12:00 Pulse Ox 99 02/03/23 12:00 O2 Del Method Room Air 02/03/23 12:00 Allergies Allergy/AdvReac Type Severity Reaction Status Date / Time No Known Allergies Allergy Verified 02/03/23 13:31 Home Medications Medication Instructions Recorded Confirmed Type cholecalciferol (vitamin D3) 50 50 mcg PO DAILY #30 caps 02/01/22 02/01/23 Rx mcg (2,000 unit) capsule rosuvastatin 5 mg tablet (Crestor) 5 mg PO DAILY #90 tabs 08/06/22 02/01/23 Rx metformin 1,000 mg tablet 1,000 mg PO DAILY #180 tabs 09/09/22 02/01/23 Rx multivit with minerals-iron 18 1 tablet PO DAILY 02/01/23 02/01/23 History mg-folic ac 400 mcg-vit K 25 mcg tablet (Adults Multivitamin) omega-3 fatty acids 500 mg capsule 500 mg PO DAILY 02/01/23 02/01/23 History amoxicillin 875 mg-potassium 1 tablet PO Q12H #12 tabs 02/04/23 Rx clavulanate 125 mg tablet ferrous sulfate 325 mg (65 mg 325 mg PO DAILY #30 tabs 02/04/23 Rx iron) tablet (iron) metronidazole 500 mg tablet 500 mg PO Q8H #18 tabs 02/04/23 Rx nicotine 21 mg/24 hr daily 1 patch transdermal QAM #0 ea 02/04/23 Rx transdermal patch (Nicoderm CQ) Laboratory Tests 02/01/23 02/02/23 02/02/23 10:36 16:41 18:32 WBC RBC Hgb 6.7 L* g/dL (14.0-18.0) Hct 19.9 L* % (42.0-52.0) MCV MCH MCHC RDW Plt Count MPV Immature Gran % (Auto) Neut % (Auto) Lymph % (Auto) [place] % (Auto) Eos % (Auto) Baso % (Auto) Lymph # (Auto) [place] # (Auto) Eos # (Auto) Baso # (Auto) Abs Immat Gran (auto) Absolute Neuts (auto) Absolute Nucleated RBC Nucleated RBC % PT INR APTT Sodium Potassium Chloride Carbon Dioxide Anion Gap BUN Creatinine Estim Creat Clear Calc Estimated GFR Glucose POC Capillary Glucose 113 H mg/dl (65-105) Calcium Phosphorus Magnesium Total Bilirubin AST ALT Alkaline Phosphatase Total Protein Albumin Blood Type A Positive Antibody Screen Negative Crossmatch See Detail 02/02/23 02/03/23 02/03/23 20:02 01:04 08:20 WBC 7.5 K/mm3 (4.5-10.0) RBC 2.49 L M/mm3 (4.6-6.20) Hgb 6.6 L* g/dL 7.7 L g/dL (14.0-18.0) (14.0-18.0) Hct 19.5 L* % 23.2 L % (42.0-52.0) (42.0-52.0) MCV 93.2 fl (80-100) MCH 30.9 pg (26-34) MCHC 33.2 g/dl (32-36) RDW 13.5 % (11.5-14.5) Plt Count 155 k/mm3 (150-375) MPV 9.5 fl (7.4-10.4) Immature Gran % (Auto) 2.0 H % (0-0.5) Neut % (Auto) 62.3 % (45.5-73.1) Lymph % (Auto) 24.3 % (18.3-44.2) [place] % (Auto) 10.1 H % (2.6-8.5) Eos % (Auto) 0.9 % (0-4.4) Baso % (Auto) 0.4 % (0.2-1.2) Lymph # (Auto) 1.83 K/mm3 (0.9-3.2) [place] # (Auto) 0.8 H K/mm3 (0.1-0.6) Eos # (Auto) 0.1 K/mm3 (0-0.3) Baso # (Auto) 0.0 K/mm3 (0.0-0.1) Abs Immat Gran (auto) 0.15 H K/mm3 (0.00-0.031) Absolute Neuts (auto) 4.7
[2023-02-03] MEDS: LACTATED RINGERS 1,000 ML 150 ML IV CONT (13:43)
[2023-02-03] MEDS: SIMETHICONE ORAL SUSPENSION 20 MG/0.3 ML 30 ML BOTTLE 0.6 ML PO (16:27)
[2023-02-03 16:53] LABS: Glucose Point of Care 122 mg/dl (65-105)
--- NOTE | 2023-02-03 17:45 | PC.NURSE ---
Returned from GI Lab via stretcher. Report received from [ Sadia RN @ [phone]
[2023-02-03] MEDS: ROSUVASTATIN 5 MG TABLET PO (17:57)
[2023-02-03] MEDS: metFORMIN HCL 500 MG TABLET 1000 MG PO (17:57)
[2023-02-03] MEDS: CHOLECALCIFEROL 1,000 UNITS TABLET 2000 UNITS PO (17:57)
[2023-02-03] MEDS: OMEGA 3 POLYUNSAT FATTY ACIDS 1 GM CAP PO (17:57)
[2023-02-03] MEDS: MULTIVITAMINS /C LUTEIN (CENTRUM SILVER) TABLET *BKC 1 TAB PO (17:57)
[2023-02-03 19:11] LABS: Hematocrit 24.7 % (42.0-52.0); Hemoglobin 8.3 g/dL (14.0-18.0)
--- NOTE | 2023-02-03 19:21 | PC.NURSE ---
Notified JERAMY Chavarria of repeat Hgb of 8.3. Informed [employer]ER that pt's BP has been soft since returning from GI lab. Pt did received Propofol in the case. New order to administer 500ml IVPB NS x1, to infuse over 5 hours.
[2023-02-03] MEDS: SODIUM CHLORIDE 0.9% IV 500 ML 100 ML IV CONT (20:14)
[2023-02-04] VITALS: PULSE 101; RESP 18; O2SAT 98
[2023-02-04 01:57] LABS: Hematocrit 25.5 % (42.0-52.0); Hemoglobin 8.5 g/dL (14.0-18.0)
[2023-02-04 02:00] VITALS: PULSE 104
[2023-02-04 04:00] VITALS: BP 120/77; PULSE 104; PULSE 90; PULSE 99; RESP 18; TEMP 36.6; O2SAT 97; O2SAT 98
[2023-02-04 05:00] LABS: Basophils Percent Auto 0.4 % (0.2-1.2); Eosinophils Absolute Auto 0.2 K/mm3 (0-0.3); Eosinophils Percent Auto 2.1 % (0-4.4); Hematocrit 24.4 % (42.0-52.0); Hemoglobin 8.2 g/dL (14.0-18.0); Immature Granulocyte Absolute 0.24 K/mm3 (0.00-0.031); Immature Granulocyte Percent A 3.3 % (0-0.5); Lymphocytes Percent Auto 23.5 % (18.3-44.2); Mean Corpuscular HGB Conc 33.6 g/dl (32-36); Mean Corpuscular Hemoglobin 31.4 pg (26-34); Mean Corpuscular Volume 93.5 fl (80-100); Mean Platelet Volume 9.7 fl (7.4-10.4); Monocytes Absolute Auto 0.7 K/mm3 (0.1-0.6); Monocytes Percent Auto 9.7 % (2.6-8.5); Neutrophils Absolute Auto 4.4 K/mm3 (1.3-6.7); Nucleated Red Blood Cells Absolute Auto 0.2 K/mm3 (0.0-0.012); Nucleated Red Blood Cells Perc 3.3 % (0.0-0.2); Platelet Count Result 167 k/mm3 (150-375); Red Blood Count 2.61 M/mm3 (4.6-6.20); Red Cell Distribution Width 14.6 % (11.5-14.5); White Blood Count 7.2 K/mm3 (4.5-10.0)
[2023-02-04 05:12] LABS: Alanine Aminotransferase 32 U/L (6-50); Albumin Level 2.5 g/dL (3.5-5.1); Alkaline Phosphatase 47 U/L (38-126); Anion Gap -1 mmol/L (8-16); Aspartate Amino Transferase 32 U/L (17-59); Bilirubin,Total 0.2 mg/dL (0.2-1.3); Blood Urea Nitrogen 16 mg/dL (9-20); Calcium 7.5 mg/dL (8.4-10.2); Carbon Dioxide 28 mmol/L (22-30); Chloride 105 mmol/L (98-107); Estimated CRCL calculation 96 ml/min; Estimated Glomerular Filt Rate > 60; Glucose 171 mg/dL (65-110); Potassium 3.5 mmol/L (3.4-5.0); Sodium 132 mmol/L (137-145)
[2023-02-04] MEDS: PIPERACILLN/TAZ 3.375GM/NS50ML 3.375 GM/50 ML BAG IVPB (05:47)
[2023-02-04 06:00] VITALS: PULSE 92
[2023-02-04 08:00] VITALS: BP 121/60; PULSE 98; PULSE 99; RESP 14; TEMP 36.2; O2SAT 98
[2023-02-04] MEDS: OMEGA 3 POLYUNSAT FATTY ACIDS 1 GM CAP PO (08:21)
[2023-02-04] MEDS: CHOLECALCIFEROL 1,000 UNITS TABLET 2000 UNITS PO (08:21)
[2023-02-04] MEDS: metFORMIN HCL 500 MG TABLET 1000 MG PO (08:21)
[2023-02-04] MEDS: MULTIVITAMINS /C LUTEIN (CENTRUM SILVER) TABLET *BKC 1 TAB PO (08:21)
[2023-02-04] MEDS: ROSUVASTATIN 5 MG TABLET PO (08:21)
[2023-02-04 09:03] LABS: Glucose Point of Care 237 mg/dl (65-105)
--- NOTE | 2023-02-04 09:57 | PM.IMPN ---
Subjective Date/time seen: 02/04/23 09:57 Objective Data Vital Signs Vital Signs: Vital Signs - 24 hr 02/03/23 10:01 02/03/23 10:00 02/03/23 10:49 Temperature 36.6 C 36.6 C Pulse Rate 87 93 85 Respiratory Rate 10 L 12 Blood Pressure 120/64 105/66 Pulse Oximetry 98 99 Oxygen Delivery Oxygen Flow Rate 02/03/23 12:00 02/03/23 12:00 02/03/23 12:00 Temperature 36.6 C Pulse Rate 79 88 Respiratory Rate 16 Blood Pressure 123/70 Pulse Oximetry 99 99 Oxygen Delivery Room Air Oxygen Flow Rate 02/03/23 16:39 02/03/23 16:49 02/03/23 17:09 Temperature Pulse Rate 81 78 77 Respiratory Rate 13 18 19 Blood Pressure 87/49 L 88/48 L 99/58 L Pulse Oximetry 99 99 100 Oxygen Delivery Nasal Cannula Nasal Cannula Room Air Oxygen Flow Rate 4 2 02/03/23 16:59 02/03/23 17:19 02/03/23 17:50 Temperature 37.0 C Pulse Rate 87 82 79 Respiratory Rate 18 18 16 Blood Pressure 96/55 L 104/52 L 91/54 L Pulse Oximetry 100 99 94 Oxygen Delivery Room Air Room Air Oxygen Flow Rate 02/03/23 18:00 02/03/23 18:42 02/03/23 20:00 Temperature 36.6 C Pulse Rate 91 96 Respiratory Rate 20 Blood Pressure 93/31 L 117/59 L Pulse Oximetry 97 Oxygen Delivery Oxygen Flow Rate 02/03/23 20:00 02/03/23 22:00 02/03/23 20:00 Temperature Pulse Rate 85 94 94 Respiratory Rate 20 Blood Pressure Pulse Oximetry 97 Oxygen Delivery Room Air Oxygen Flow Rate 02/03/23 23:30 02/04/23 00:00 02/04/23 00:00 Temperature 36.6 C Pulse Rate 92 101 H 101 H Respiratory Rate 18 18 Blood Pressure 110/61 Pulse Oximetry 98 98 Oxygen Delivery Room Air Oxygen Flow Rate 02/04/23 02:00 02/04/23 04:00 02/04/23 04:00 Temperature 36.6 C Pulse Rate 104 H 104 H 90 Respiratory Rate 18 18 Blood Pressure 120/77 Pulse Oximetry 98 97 Oxygen Delivery Room Air Oxygen Flow Rate 02/04/23 04:00 02/04/23 06:00 02/04/23 08:00 Temperature 36.2 C L Pulse Rate 99 92 98 Respiratory Rate 14 Blood Pressure 121/60 Pulse Oximetry 98 Oxygen Delivery Oxygen Flow Rate Intake/Output Intake/Output: Intake & Output 02/01/23 02/02/23 02/03/23 02/04/23 23:59 23:59 23:59 23:59 Intake Total 930 2689 2429 1040 Output Total 2 Balance 930 2687 2429 1040 Meds/Results Medications: Active Medications Generic Name Dose Route Start Last Admin Trade Name Freq PRN Reason Stop Dose Admin Dextrose 12.5 gm 02/01/23 22:21 Dextrose 50% 25 Gm/50 Ml Syringe IV PUSH PRN PRN Hypoglycemia Protocol Fish Oil 1 gm 02/02/23 12:45 02/04/23 08:21 [place] 3 Polyunsat Fatty Acids 1 Gm Cap PO 1 gm QAM CHARY Administration Glucagon 1 mg 02/01/23 22:21 Glucagon For Inj 1 Mg Vial IM PRN PRN Hypoglycemia Protocol Glucose 15 gm 02/01/23 22:21 Glucose Oral Gel 15 Gm Of Glucse In 37.5 Gm Tube PO PRN PRN Hypoglycemia Protocol Dextrose 1,000 mls @ 100 mls/hr 02/01/23 22:21 Dextrose 5% 1,000 Ml IVPB PRN PRN Hypoglycemia Protocol Piperacillin/Tazobactam/Dextrose 3.375 gm in 50 mls @ 100 mls/hr 02/02/23 00:20 02/04/23 05:47 Zosyn 3.375 Gm/Ns 50 Ml IVPB 100 mls/hr Q6HR CHARY Administration Insulin Aspart 2 - 5 units 02/02/23 08:00 02/04/23 08:21 Insulin Aspart (*Bkc) 100 Units/Ml SUB-Q Not Given TID[facility] Protocol Metformin HCl 1,000 mg 02/02/23 11:59 02/04/23 08:21 Metformin Hcl 500 Mg Tablet PO 1,000 mg DAILY@0800 CHARY Administration Morphine Sulfate 4 mg 02/01/23 14:39 Morphine Sulfate (*Crx) 4 Mg/Ml Inj IV PUSH Q2H PRN Pain Rated 7-10 Multivitamins/Minerals 1 tab 02/02/23 11:59 02/04/23 08:21 Multivitamins /C Lutein (Centrum Silver) Tablet *Bkc PO 1 tab DAILY CHARY Administration Nicotine 1 patch 02/02/23 09:00 02/04/23 08:21 Nicotine (*Pbkc) 21 Mg Patch TRANSDERM Not Given QAM CHARY Ondansetron HCl 4 mg 02/01/23 14
--- NOTE | 2023-02-04 10:46 | WPDGIPROGNO ---
Progress Note: A&P Assessment and Plan (1) Acute GI bleeding: Code(s): K92.2 - Gastrointestinal hemorrhage, unspecified Status: Acute Assessment and Plan: Lower GI bleeding appears to be resolved. Appears to have been from left-sided diverticular disease based on colonoscopic exam. No evidence of diverticulitis by exam. Cannot definitively exclude diverticulitis given CT scan imaging. Recommend completing 1 week course of antibiotics. No additional bleeding noted. At this time hemoglobin stable. Plan to advance to a high-fiber diet. Patient may be discharged from the GI perspective. Suggest follow-up CBC 1 week after discharge. (2) Acute blood loss anemia: Code(s): D62 - Acute posthemorrhagic anemia Status: Acute Assessment and Plan: Patient with hemoglobin 8.2 stable today. Plan for discharge today if others agree. High-fiber diet advised because of diverticular disease. Subjective Date/time seen: 02/04/23 10:46 Interval history: Patient alert comfortable this morning. No additional bleeding noted. Tolerated diet well last night. Review of Systems Review of Systems: Review of systems noncontributory. Exam Narrative: Physical exam reveals patient be alert oriented x3. Patient is afebrile. HEENT exam reveals no icterus. Lungs are clear. Heart without murmur. Abdomen bowel sounds present soft nontender no organomegaly. Objective Data Vital Signs Vital Signs: Vital Signs - 24 hr 02/03/23 10:49 02/03/23 12:00 02/03/23 12:00 Temperature 97.8 F 97.9 F Pulse Rate 85 79 88 Respiratory Rate 12 16 Blood Pressure 105/66 123/70 Pulse Oximetry 99 99 Oxygen Delivery Oxygen Flow Rate 02/03/23 12:00 02/03/23 16:39 02/03/23 16:49 Temperature Pulse Rate 81 78 Respiratory Rate 13 18 Blood Pressure 87/49 L 88/48 L Pulse Oximetry 99 99 99 Oxygen Delivery Room Air Nasal Cannula Nasal Cannula Oxygen Flow Rate 4 2 02/03/23 17:09 02/03/23 16:59 02/03/23 17:19 Temperature Pulse Rate 77 87 82 Respiratory Rate 19 18 18 Blood Pressure 99/58 L 96/55 L 104/52 L Pulse Oximetry 100 100 99 Oxygen Delivery Room Air Room Air Room Air Oxygen Flow Rate 02/03/23 17:50 02/03/23 18:00 02/03/23 18:42 Temperature 98.6 F Pulse Rate 79 91 Respiratory Rate 16 Blood Pressure 91/54 L 93/31 L Pulse Oximetry 94 Oxygen Delivery Oxygen Flow Rate 02/03/23 20:00 02/03/23 20:00 02/03/23 22:00 Temperature 97.8 F Pulse Rate 96 85 94 Respiratory Rate 20 Blood Pressure 117/59 L Pulse Oximetry 97 Oxygen Delivery Oxygen Flow Rate 02/03/23 20:00 02/03/23 23:30 02/04/23 00:00 Temperature 97.8 F Pulse Rate 94 92 101 H Respiratory Rate 20 18 Blood Pressure 110/61 Pulse Oximetry 97 98 Oxygen Delivery Room Air Oxygen Flow Rate 02/04/23 00:00 02/04/23 02:00 02/04/23 04:00 Temperature Pulse Rate 101 H 104 H 104 H Respiratory Rate 18 18 Blood Pressure Pulse Oximetry 98 98 Oxygen Delivery Room Air Room Air Oxygen Flow Rate 02/04/23 04:00 02/04/23 04:00 02/04/23 06:00 Temperature 97.9 F Pulse Rate 90 99 92 Respiratory Rate 18 Blood Pressure 120/77 Pulse Oximetry 97 Oxygen Delivery Oxygen Flow Rate 02/04/23 08:00 02/04/23 08:00 Temperature 97.1 F L Pulse Rate 98 99 Respiratory Rate 14 Blood Pressure 121/60 Pulse Oximetry 98 Oxygen Delivery Oxygen Flow Rate Intake/Output Intake/Output: Intake & Output 02/01/23 02/02/23 02/03/23 02/04/23 23:59 23:59 23:59 23:59 Intake Total 930 2689 2429 1040 Output Total 2 Balance 930 2687 2429 1040 Meds/Results Medications: Active Medications Generic Name Dose Route Start Last Admin Trade Name Freq PRN Reason Stop Dose Admin Dextrose 12.5 gm 02/01/23 22:21 Dextrose 50% 25 Gm/50 Ml Syringe IV PUSH PRN PRN Hypoglycemia Protocol Fish Oil 1 gm 02/02/23 12:45 02/04/23
[2023-02-04 11:58] LABS: Hematocrit 26.3 % (42.0-52.0); Hemoglobin 8.7 g/dL (14.0-18.0)
[2023-02-04 12:28] LABS: Glucose Point of Care 177 mg/dl (65-105)
[2023-02-04 12:32] LABS: Glucose Point of Care 109 mg/dl (65-105)
[2023-02-04 14:21] LABS: Glucose Point of Care 128 mg/dl (65-105)
--- NOTE | 2023-02-04 15:17 | PM.DS ---
DS: Admitting Diagnosis Discharge Date 02/04/23 Admitting Diagnosis Acute GI bleeding Diverticulitis Hyperlipidemia Type 2 diabetes mellitus without complication without long-term current use of insulin DS: Discharge Diagnosis Discharge Diagnosis (1) Acute blood loss anemia: Code(s): D62 - Acute posthemorrhagic anemia Status: Acute (2) LGI bleed: Code(s): K92.2 - Gastrointestinal hemorrhage, unspecified Status: Acute (3) Diverticulitis: Code(s): K57.92 - Diverticulitis of intestine, part unspecified, without perforation or abscess without bleeding Status: Acute (4) Hyperlipidemia: Code(s): E78.5 - Hyperlipidemia, unspecified Status: Acute (5) Tobacco use: Code(s): Z72.0 - Tobacco use Status: Acute (6) Type 2 diabetes mellitus without complication, without long-term current use of insulin: Code(s): E11.9 - Type 2 diabetes mellitus without complications Status: Acute DS: Summary Hospital Course Reason for hospitalization: This is a 57-year-old male patient who was admitted to the hospital due to acute GI bleeding ongoing for the last for days. Patient has baseline hemoglobin 15-16 and it dropped below 7. Hospital Course: Patient received multiple transfusions of PRBCs, total 6 units during stay. Patient had CT imaging consistent with acute diverticulitis and he has multiple recurrent episodes of diverticulitis but never bleeding before. Unable to obtain GI nuclear med bleeding study over the weekend wants to was obtained on Friday morning it was negative. Patient underwent colonoscopy Friday with evidence left-sided diverticular bleeding no bleeding on the right side of the colon. Active bleeding had resolved by this. Patient repeat hemoglobin with stable findings he felt well to be discharged today. Discharge with prescription for Augmentin and metronidazole. Patient instructed to avoid aspirin and NSAIDs. Return precautions discussed. Smoking cessation reiterated. Time spent discussing smoking cessation with patient: 3 to 10 minutes Status at Discharge Cognitive/behavioral status at discharge: Awake, alert, oriented and pleasant Functional status at discharge: independent ambulation Overall status at discharge: patient is progressing back to baseline Time Spent with Patient Time attestation: Total time spent providing and/or coordinating discharge services: Time spent: Greater than 30 minutes Exam Narrative: GENERAL: Generally well appearing, improved coloration, alert and oriented, in no apparent distress. He is pleasant and conversant in full sentences. HEENT: Pupils are equally round and briskly reactive to light. Extraocular muscles are intact. Oral mucous membranes are moist without lesions. NECK: The patient has no noted JVD. No adenopathy is appreciated. CHEST/LUNGS: Lungs are clear bilaterally without rhonchi, rales, or wheezes. There is no subcutaneous air appreciated. There is no tenderness to the chest wall. HEART: The patient has a regular rate and rhythm. No murmurs, rubs, or gallops are appreciated. Distal pulses are 2+. ABDOMEN: The patient?s abdomen is soft, nontender, and nondistended. Bowel sounds are positive. There are no peritoneal signs. EXTREMITIES: The patient has no peripheral edema. There is no focal long bone tenderness or deformity. SKIN: The patient?s skin is warm and dry, no longer is pale PSYCHIATRIC: The patient has normal mental status and has an appropriate affect. NEUROLOGIC: There are no gross deficits to the cranial nerves. Patient ambulates with steady gait. DS: Data Data Completed and Pending Completed studies during hospitalization: Abdomen pelvis CT, GI bleed nuc med scan Labs on day of discharge: Labs from last 24 hours 02/04/23 02/04/23 02/04/23 11:51 08:06 04:43 WBC 7.2 RBC 2.61 L Hgb 8.7 L 8.2 L Hct 26.3 L 24.4 L MCV 93.5 MCH 31.4 MCHC 33.6 RDW
== END 2023-02-04 13:11 | disposition home or self-care (01) | DRG 811 ==
LOC: ANHED 14:32 → ANH3MEDSUR 15:22 → ANHIMU 02-02 13:14
PROVIDERS: Emergency Medicine; Internal Medicine; Internal Medicine Gastroenterology; Nurse Practitioner; Admitting Provider Hospitalist; Emergency Provider Physician Assistant; PCP Family Medicine; Visit Provider Nurse Practitioner
PROC: 0DJD8ZZ Inspection of Lower Intestinal Tract, Via Natural or Artificial Opening Endoscopic (ICD-10-PCS; CPT 45378; principal; 2023-02-03 14:30)
DX: D62 Acute posthemorrhagic anemia (principal); K57.33 Diverticulitis of large intestine without perforation or abscess with bleeding; I48.20 Chronic atrial fibrillation, unspecified; F17.210 Nicotine dependence, cigarettes, uncomplicated; E78.5 Hyperlipidemia, unspecified; K75.81 Nonalcoholic steatohepatitis (NASH); Z87.442 Personal history of urinary calculi; Z86.010 Personal history of colon polyps
CPT/HCPCS: 36415; 36430; 74177; 78278; 80053; 82948; 83605; 83735; 84100; 85014; 85018; 85025; 85049; 85380; 85384; 85610; 85730; 86850; 86900; 86901; 86923; 87045; 87269; 87272; 87427; 87449; 96365; 99285; A9270; A9560; G0378; J2543; J7030; J7040; J7050; J7120; P9016; Q9967

== ENCOUNTER 2024-02-27 18:03 | Emergency (ER) | payer OTHER, SELFPAY ==
[2024-02-27 18:14] VITALS: BP 127/81; PULSE 79; RESP 15; TEMP 36.2; O2SAT 99
--- NOTE | 2024-02-27 18:40 | ED.WOUNDLAC ---
HPI - Wound/Laceration General Chief Complaint: Wound/Laceration Stated Complaint: cut to rt thumb Time Seen by Provider: 02/27/24 18:27 Source: patient, family, RN notes reviewed and old records reviewed Mode of arrival: ambulatory Limitations: no limitations History of Present Illness HPI narrative: 58 year old male presents to express care with complaints of cutting the right mid lateral aspect brad his thumb today on a piece of broken pottery around noon today minimal sucutaneous in depth, linear 2 cm with no bleeding noted. Patient also states concern for stye to his right upper eyelid noted for the past 3 days with no visual changes noted. Onset (ago): day(s) (3 days swelling to right upper eyelid, noon today for laceration to thumb) Treatments prior to arrival: bandage and other (eye lid cleanser) Related Data Home Medications Medication Instructions Recorded Confirmed omega-3 fatty acids 500 mg capsule 500 mg PO DAILY 02/01/23 02/27/24 Allergies Allergy/AdvReac Type Severity Reaction Status Date / Time No Known Allergies Allergy Verified 02/27/24 18:17 Review of Systems Review of Systems: CONSTITUTIONAL: Denies fever, chills, or sweats. swelling to upper right eyelid with no visual changes CARDIOVASCULAR: Denies chest pain, palpitations, or edema. RESPIRATORY: Denies cough or dyspnea. SKIN: Reports laceration to the mid lateral aspect of his right thumb at noon today no bleeding present. MUSCULOSKELETAL: Denies musculoskeletal pain NEUROLOGIC: Denies numbness, or weakness. All systems reviewed & are unremarkable except as noted in HPI and below PMFSH Past Medical History Medical History Afib One time episode and has not recurred. Degenerative disc disease Diverticulitis History of squamous cell carcinoma Removed from chest and face Hyperlipidemia Kidney stones [place] (nonalcoholic steatohepatitis) Tobacco use Tobacco use Surgical History Surgical History H/O colonoscopy with polypectomy H/O hernia repair History of appendectomy History of removal of pigmented skin lesion History of removal of skin mole History of vasectomy Family History Family History Mother Family history of schizophrenia Social History Social History Social History: The patient is and has 3 children. 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 His is the durable power regulatory attorney for healthcare. He smokes approximately 7 cigarettes a day if that. He denies any alcohol marijuana or illicit drugs. His is the durable power regulatory attorney for healthcare. Code status full code Smoking packs per day: 0.25 Smoking cigarettes per day: 5.0 Years smoked: 30 Smoking pack-years: 7.50 Smoking status: Current every day smoker Second hand tobacco smoke exposure: No Alcohol intake: never Substance use: never Substance use type: does not use Lack of Transportation: No Lack of Food: Never True Current Housing: I Have Housing Concerned About Future Housing: No Difficulty Paying Gas/Electric Bills: No Difficulty Paying for Meds: No Currently Unemployed: No Education: Bachelor's Degree Difficulty w/ Childcare or Family Care: No Spiritual care concerns: No Comments At time of signature, agree with nursing past medical, surgical, social and family history. There is no relevant family history pertinent to the presenting complaint Exam Narrative: GENERAL: Well-appearing, well-nourished, and in no acute distress. HEAD: Normocephalic, atraumatic.swelling of right upper eyelid no visual changes reports concern for stye no definite pustule noted NECK: Supple. no lymphadenopathy CHEST: Clear to auscultation. No respiratory distress.SAO2 99% on room air HEART: Regular rate and rhythm. No murmur heard. Nor
== END 2024-02-27 19:03 | disposition home or self-care (01) ==
PROVIDERS: Emergency Provider Registered Nurse; PCP Family Medicine
DX: S61.011A Laceration without foreign body of right thumb without damage to nail, initial encounter (principal); W26.9XXA Contact with unspecified sharp object(s), initial encounter; H00.011 Hordeolum externum right upper eyelid; F17.210 Nicotine dependence, cigarettes, uncomplicated; E78.5 Hyperlipidemia, unspecified; K75.81 Nonalcoholic steatohepatitis (NASH)
CPT/HCPCS: 12001; 99213; G0463

== ENCOUNTER 2024-09-08 08:18 | Outpatient (CLI) | payer OTHER, SELFPAY ==
--- NOTE | ~2024-09-08 | XR_ITS ---
XR abdomen/kub 1V Ordering provider: Ernesto Herzog MD History: . R10.9Unspecified abdominal pain, rt middle abdomen discomfor . Comparison: October 06, 2017 FINDINGS: BOWEL: Nonobstructive bowel gas pattern. ORGANOMEGALY: None. SIGNIFICANT PATHOLOGIC CALCIFICATIONS: None. Calcifications in the pelvis are unchanged most likely in lymph nodes or prostatic. OTHER: No free air is seen under the diaphragm. IMPRESSION: NO ACUTE ABDOMINAL FINDINGS. Reviewed, dictated and finalized at location A.
--- OUTSIDE RECORDS SUMMARY | 2024-09-08 08:27 | XMS_ITS | Clinical Summary ---
Author Organization [facility] [address] Address [address] [place] [address] Care Team Providers Care Block Handler Name Role Phone Bassem Craig MD Primary Care Provider [phone] Allergies No known active allergies Medications metFORMIN (GLUCOPHAGE) 500 mg tablet Take 500 mg by mouth 2 (two) times a day with meals. Active rosuvastatin (CRESTOR) 5 mg tablet Take 5 mg by mouth daily. Active Active Problems Problem Noted Date Diagnosed Date Paroxysmal atrial fibrillation 08/05/2017 Family History Medical History Relation Name Comments Liver cancer Father 2 Cancer, liver; Cause of : Cancer, liver Relation Name Status Comments Father 1 Father 2 Social History Tobacco Use Types Packs/Day Years Used Date Smoking Tobacco: Every Day Smokeless Tobacco: Former Alcohol Use Standard Drinks/Week Comments No 0 (1 standard drink = 0.6 oz pur e alcohol) Personal Safety Answer Date Recorded Getting School Help Needed Not on file 08/28 Sex and Gender Information Value Date Recorded Sex Assigned at Not on file 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 Gender Identity Not on file Sexual Orientation Not on file Obstetrics History Last Filed Vital Signs Vital Sign Reading Time Taken Comments Blood Pressure 106/80 09/10/2017 8:58 AM CDT Pulse 80 09/10/2017 8:58 AM CDT Temperature - - Respiratory Rate - - Oxygen Saturation 97% 09/10/2017 8:58 AM CDT Inhaled Oxygen Concentration - - Weight 100 kg (220 lb 8 oz) 09/10/2017 8:58 AM C DT Height 175.3 cm (5' 9 ) 09/10/2017 8:58 AM CDT Body Mass Index 32.56 09/10/2017 8:58 AM CDT Plan of Treatment Not on file Insurance [facility] CHOICE PLUS Care Teams Block Handler Relationship Specialty Start Date End Date Bassem Craig MD [address] [facility] [address] [place] [address] PCP - General 11/30/15
--- OUTSIDE RECORDS SUMMARY | 2024-09-08 08:28 | XMS_ITS | Clinical Summary ---
Author Organization [facility] Address [address] [facility] [place] [address] Care Team Providers Care Christmas Bell Ringer Name Role Phone Bassem Craig MD Primary Care Provider [phone] Source Comments [facility] Affiliates and Associated Physician Practices is amultiple site organization consisting of ambulatory clinics and hospital sitesin [place], [place], [place] and [place]. This disclosure is being madepursuant to the Care Everywhere program and may not contain all information available regarding this patient. Last updated 18.[facility] Allergies No known active allergies Medications * Be aware that medications may not be up to date on this document. Alwaysverify current medications with the patient. Medication Sig Dispensed Refills Start Date End Date Status hydrocodone-acetaminoph en (NORCO) 5-325 MG tablet as needed. Active diclofenac sodium EC (VOLTAREN) 75 MG tablet Take 1 Tab by mouth 2 times daily. 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 Pulse 80 04/29/2013 9:48 AM PRINTING PRESS OPERATOR Temperature 36.9 C (98.5 F) 04/29/2013 9: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 PRINTING PRESS 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 Respiratory Rate 18 04/29/2013 9: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 PRINTING PRESS 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 Oxygen Saturation - - Inhaled Oxygen Concentration - - Weight 102.1 kg (225 lb) 11/01/2013 10:49 AM CDT Height 175.3 cm (5' 9 ) 11/01/2013 10:49 AM CDT Body Mass Index 33.23 11/01/2013 10:49 AM CDT Plan of Treatment Health Maintenance Due Date Last Done Comments COLOGUARD (AGES 45-75) - COL ON CA SCREENING 1967 COLON MONITORING 1967 COLONOSCOPY - COLON CA SCREENING 1967 CT COLONOGRAPHY - COLON CA SCREENING 1967 Colorectal Cancer Screening 1967 FIT - COLON CA SCREENING 1967 FLEX SIG - COLON CA SCREENING 1967 LIPID TESTING 1967 HIV SCREENING 1982 HEPATITIS C SCREENING 06/23/1985 DTAP/TDAP/TD VACCINES (1 - Tdap) 1986 HEPATITIS B VACCINE (1 of 3 - 19+ 3-dose series) 1986 PNEUMOCOCCAL VACCINE 50+ (1 of 2 - PCV) 1986 PNEUMOCOCCAL VACCINE (1 of 2 - PCV) 1986 ZOSTER VACCINE (1 of 2) 2017 COVID-19 VACCINE ( - 2023-2 5 season) 2024 INFLUENZA VACCINE (#1) 2024 06/16/2010 DEPRESSION SCREENING 06/16/2024 HIB VACCINE Aged Out No longer eligi ble based on patient's age to complete this topic HPV VACCINE Aged Out No longer eligi ble based on patient's age to complete this topic MENINGOCOCCAL (Group B) VACC INE SHARED DECISION-MAKING Aged Out No longer eligibl e based on patient's age to complete this topic MENINGOCOCCAL GROUPS A/C/Y/W VACCINE Aged Out No longer eligible b ased on patient's age to complete this topic Care Teams Christmas Bell Ringer Relationship Specialty Start Date End Date Bassem Craig MD [address] [place] [address] PCP - General 10/09/17
--- OUTSIDE RECORDS SUMMARY | 2024-09-08 08:28 | XMS_ITS | Encounter Summary ---
Author Organization [facility] Address [address] [place], [place] [address] [address] Care Team Providers Care Marketing Lead Name Role Phone Bassem Craig MD Primary Care Provider [phone] Encounter Details Date Type Department Care Team (Late st Contact Info) Description 03/05/2023 Lab Requisition [facility] - DermPath Lab [address] [facility] [place] [address] Mani Medina MD [address] [place] [address] Social History Tobacco Use Types Packs/Day Years Used Date Smoking Tobacco: Every Day Cigarettes 0.4 20 Alcohol Use Standard Drinks/Week Comments Yes 3.3 (1 standard drink = 0.6 oz p ure alcohol) Sex and Gender Information Value Date Recorded Sex Assigned at Not on file Gender Identity Not on file Sexual Orientation Not on file documented as of this encounter Plan of Treatment Not on file documented as of this encounter Procedures Procedure Name Priority Date/Time Associated Diagnosis Comments DERMATOPATHOLOGY Routine 03/04/2023 12:0 0 AM CDT documented in this encounter Results * DERMATOPATHOLOGY (03/04/2023 12:00 AM CDT) Case Report Dermatopathology Report Case: [id number] Authorizing Provider: Mani Medina MD Collected: 03/04/2023 12:00 AM Ordering Location: [facility] DermPath Lab Received: 03/05/2023 01:50 PM Pathologist: Gretel Narvaez MD Specimen: Skin, left distal anteromedial thigh 3:18 PM CDT DERMATOPATHOLOGY LABORATORY Final Diagnosis Specimen A. SKIN, left distal anteromedial thigh: SEBORRHEIC KERATOSIS, IRRITATED AND INFLAMED (L82.0) APPROXIMATES MARGIN 3:18 PM CDT DERMATOPATHOLOGY LABORATORY Clinical History R/O SCC vs ISK Flamed Nevus. Check Margins 3:18 PM CDT DERMATOPATHOLOGY LABORATORY Gross Description Specimen A: Received is one formalin filled container labeled with the patients name and designated left distal anteromedial thigh. The specimen consists of a shave removal measuring 10x6x3 mm. Jar 0. 3:18 PM CDT DERMATOPATHOLOGY LABORATORY Microscopic Description Specimen A. SKIN, left distal anteromedial thigh: Sections show acanthosis, papillomatosis, hyperkeratosis, and squamous eddies. There is a lymphohistiocytic infiltrate within the papillary dermis. This lesion approximates the margin of the specimen. 3:18 PM CDT DERMATOPATHOLOGY LABORATORY Disclaimer An external and internal positive and negative controls are appropriate for the histochemical, immunohistochemical and immunofluorescence stain(s) in this case (if any), except where stated explicitly. The performance characteristics of the stain(s) cited in this report were developed and its performance characteristic determined by the Dermatopathology Laboratory at [facility], directed by Dr. Rusty Frost. These tests need not be, and therefore are not, approved by the [place] Food and Drug Administration. The tests are used for clinical purposes. Billing Codes Specimen Charges Stain Charges 77354 1 3:18 PM CDT DERMATOPATHOLOGY LABORATORY Embedded Images 3:18 PM CDT DERMATOPATHOLOGY LABORATORY Pathology/Cytolog y TISSUE SPECIMEN FROM SKIN / Unknown 03/04/2023 03/05/2023 1:50 PM CDT Mani Medina MD LAB - PATHOLOGY/CYTO LOGY ORDERABLES DERMATOPATHOLOGY LABORATORY [facility] - Department of Dermatology [facility] [address] [place] [address], [address] [phone] documented in this encounter Visit Diagnoses Not on filedocumented in this encounter Care Teams Marketing Lead Relationship Specialty Start Date End Date Bassem Craig MD [address] [place] [address] PCP - General 10/09/17 documented as of this encounter
--- OUTSIDE RECORDS SUMMARY | 2024-09-08 08:28 | XMS_ITS | Encounter Summary ---
Author Organization [facility] Address [address] [place] [address] Care Team Providers Care Hand Weaver Name Role Phone Bassem Craig MD Primary Care Provider [phone] Encounter Details Date Type Department Care Team (Late st Contact Info) Description 12/10/2017 Lab Requisition [facility] Care DermPath Lab [address] [place] [address] Mani Medina MD [address] [place] [address] Social History Tobacco Use Types [...] Priority Date/Time Associated Diagnosis Comments DERMATOPATHOLOGY Routine 12/09/2017 12:0 0 AM CDT documented in this encounter Results * DERMATOPATHOLOGY (12/09/2017 12:00 AM CDT) Case Report Dermatopathology Report Case: [id number] Authorizing Provider: Mani Medina MD Collected: 12/09/2017 12:00 AM Pathologist: Briana Frost MD Received: 12/10/2017 12:02 PM Specimen: Skin, left chest 4:24 PM CDT DERMATOPATHOLOGY LABORATORY Final Diagnosis Specimen A. SKIN, left chest: SEBACEOUS HYPERPLASIA (L73.8) 4:24 PM CDT DERMATOPATHOLOGY LABORATORY Clinical History R/O SH vs SCC vs BCC vs nevus. 4:24 PM CDT DERMATOPATHOLOGY LABORATORY Gross Description Specimen A: Received is one formalin filled container labeled with the patient's name and designated left chest. The specimen consists of a shave biopsy measuring 5x5n6sy. Jar 0. 4:24 PM CDT DERMATOPATHOLOGY LABORATORY Microscopic Description Specimen A. SKIN, left chest: There are prominent sebaceous gland lobules surrounding a dilated hair follicle. 4:24 PM CDT DERMATOPATHOLOGY LABORATORY Disclaimer An external and internal positive and negative controls are appropriate for the histochemical, immunohistochemical and immunofluorescence stain(s) in this case (if any), except where stated explicitly. The performance characteristics of the stain(s) cited in this report were developed and its performance characteristic determined by the Dermatopathology Laboratory at [facility]. These tests need not be, and therefore are not, approved by the [place] Food and Drug Administration. The tests are used for clinical purposes. Billing Codes Specimen Charges Stain Charges 24068 1 4:24 PM CDT DERMATOPATHOLOGY LABORATORY Embedded Images 4:24 PM CDT DERMATOPATHOLOGY LABORATORY Pathology/Cytolog y TISSUE SPECIMEN FROM SKIN / Unknown 12/09/2017 12/10/2017 12:02 PM CDT Mani Medina MD LAB - PATHOLOGY/CYTO LOGY ORDERABLES DERMATOPATHOLOGY LABORATORY [facility] - Department of Dermatology [address] [facility], 5th Floor Lab [address] [place], [place] [address] [place] [address] documented in this encounter Visit Diagnoses Not on filedocumented in this encounter Care Teams Hand Weaver Relationship Specialty Start Date End Date Bassem Craig MD [address] [place] [address] PCP - General 10/09/17 documented as of this encounter
--- OUTSIDE RECORDS SUMMARY | 2024-09-08 08:28 | XMS_ITS | Data Portability ---
Author Organization [place] - [facility] Address [address] [place] [address] Care Team Providers Care Hot Man Name Role Phone CHAN TORRES Orthopedic Surgeon [phone] Assessment No assessment recorded. Plan of Treatment Reminders Order Date Submit Date Provider Last Modified By Organization Details Last Modified Time Details Appointments None recorded. Lab None recorded. Referral physical therapist referral - Left Shoulder-AC arthritis-C 6 Left Radicapathy , Left lateral Epicondylit is-2 times a week for 3 weeks- Hotpacks, ultrasound, Phonophores is, ROM, Strengtheni ng, [place], Cervical Traction 2023 024 MIKAYLA [place], [address] [facility] [facility], [place], [address], 4 14:07:19 Procedures None recorded. Surgeries None recorded. Imaging None recorded. Medication Orders Kenalog 40 mg/mL suspension for injection 2023 024 rhanegan Not available 4 10:51:57 Kenalog 40 mg/mL suspension for injection 2023 024 rhanegan Not available 10:51:58 Patient TargetsNo targets recorded. Patient InstructionsNo instructions recorded. Reason for Referral Physical Therapist Referral for Pain of left shoulder joint Left Shoulder-AC arthritis-C6 Left Radicapathy, Left lateral Epicondylitis-2 times a week for 3 weeks- Hotpacks, ultrasound, Phonophoresis, ROM, Strengthening, [place], Cervical Traction Referring Physician: Chan Torres, Orthopedic Surgery, Encounter Date: 11/06/2023 Results Created Date Observation Date Name Description Value Unit Range Abnormal Flag Note LastModifiedBy Organization Detail LastModifiedTime 11/07/19 24 11/06/2023 XR, shoul klaus, 2 or more view No observ ation record ed. [facility] [address] [facility] [address], [place], [address], 11/17/2023 18:15:09 11/07/19 24 11/06/2023 XR, elbow , 3 or more view No observ ation record ed. [facility] [address], [place], [address], 11/17/2023 18:15:10 Result Notes None recorded. Problems Name Problem SNOMED Code Status Onset Date Resolution Date Notes Provider Name and Address Organization Details Recorded Time Localized, primary osteoarthri tis of the hand 882265542 Active 2022 [place] [address] [place] [address], [phone], [facility] 3 13:57:49 Pain of left elbow joint 9134419240299 9104 Active 2023 Jermain bartlett, [facility] 4 14:48:05 Pain of left shoulder joint 8389912097432 9109 Active 2023 Jermain bartlett, [facility] 4 14:50:00 Cervical radiculopat hy 84064077 Active 2023 [place] [address] [place] [address], [phone], [facility] 4 12:57:58 Lateral epicondylit is of left humerus 2359431712193 00 Active 2023 [place] [address] [place] [address], [phone], [facility] 4 12:58:03 Arthritis of acromioclav icular joint 633367063 Active 2023 [place] [address] [place] [address], [phone], [facility] 4 12:58:07 Problem Notes None recorded. Procedures Surgical History None recorded. Imaging Results Imaging Date Name Status LastModified by Organiz ation Details LastModified Time 11/06/2023 XR, shoulder, 2 or more view completed rhanegan [facility] [address] [address], [place], [address], 11/17/2023 18:15:09 11/06/2023 XR, elbow, 3 or more view completed rhanegan [facility] [address] [facility] [address], [place], [address], 11/17/2023 18:15:10 Procedure Notes None recorded. Medical Equipment None Reported. Allergies No known drug allergies Medications Name Sig Start Date Stop Date Status Note LastModified by Organization Details LastModified Time metformin 500 mg tablet TAKE 1 TABLET BY MOUTH DAILY 11/05 completed Not Available Not Available Not Available meloxicam 15 mg tablet TAKE 1 TABLET BY MOUTH EVERY DAY 11/04 completed Not Available Not Available Not Available metronida zole 500 mg tablet TAKE 1 TABLET BY MOUTH EVERY 8 HOURS 11/05 completed Not Available Not Available Not Available Kenalog 40 mg/mL suspensio n for injection Take 2 mL by injectio n route. 2023 active 2ml Kenalog 40mg/ml with 2ml 1% Lidocain e injected into Left Elbow Not Available Not Available Not Available amoxicill in 875 mg tablet TAKE 1 TABLET BY MOUTH EVERY 12 HOURS FOR 10 DAYS 11/04 completed Not Available Not Available Not Available hydrocodo ne 7.5 mg-acetam inophen 325 mg tablet TAKE 1 TABLET BY MOUTH EVERY 6 HOURS NEEDED FOR PAIN 11/04 completed Not Available Not Available Not Available cephalexi n 500 mg capsule 11/04 completed Not Available Not Available Not Available erythromy august 5 mg/gram (0.5 %) eye ointment 11/04 completed Not Available Not Available Not Available metformin 1,000 mg tablet TAKE 1 TABLET BY MOUTH TWICE DAILY active Not Available Not Available No t Available amoxicill in 875 mg-potass ium clavulana te 125 mg tablet TAKE 1 TABLET BY MOUTH EVERY 12 HOURS 11/05 completed Not Available Not Available Not Available amoxicill in 500 mg-potass ium clavulana te 125 mg tablet TAKE 1 TABLET BY MOUTH THREE TIMES DAILY UNTIL ALL TAKEN 11/04 completed Not Available Not Available Not Available neomycin 3.5 mg/g-poly myxin B 10,000 unit/g-de xameth 0.1 % eye oint APPLY A SMALL AMOUNT TO RIGHT EYELIDS THREE TIMES DAILY 11/04 completed Not Available Not Available Not Available rosuvasta tin 5 mg tablet TAKE 1 TABLET BY MOUTH DAILY active Not Available Not Available No t Available Vitals Date Recorded Body weight Heart rate Oxygen saturation Oxygen saturation in Arterial blood by Pulse oximetry Systolic blood pressure Diastolic blood pressure Provider Name and Address Organization Details Last Updated DateTime 3 12638.8 1 g 100 /min 95 % 95 % 135 mm[Hg] 80 mm[Hg] Jermain Acuña [facility] 3 13:49:53 Date Recorded Body height Body mass index (BMI) Body weight Heart rate Oxygen saturation Oxygen saturation in Arterial blood by Pulse oximetry Systolic blood pressure Diastolic blood pressure Provider Name and Address Organization Details Last Updated DateTime 4 177.8 cm 30.4 kg/m2 37561.5 8 g 90 /min 96 % 96 % 116 mm[Hg] 91 mm[Hg] Petra Spencer [facility] 4 10:17:00 Social History Question Answer Notes LastModified by Organizat ion Details LastModified Time Tobacco Smoking Status Current Every Day Smoker Petra Aguirreabel [facility] 11/06/2023 10:18:24 Do You Feel Hopeless Or Helpless No Information not available 11/06/2023 Have You Had Thoughts Of Suicide? No Information not available 11/06/2023 Are You Having Any Suicidal Thoughts Now? No Information not available 11/06/2023 Have You Previously Attempted Suicide? No Information not available 11/06/2023 Do You Have A Plan To Hurt Yourself Or Others? No Information not available 11/06/2023 Has A Family Member Or Someone Close To You Committed Suicide Or Have You Been A Witness To Suicide? No Information not available 11/06/2023 Have You Fallen In The Last 3 Months? No Information not available 11/06/2023 What Was The Date Of Your Most Recent Tobacco Screening? 11/06/2023 Information not available 11/05/2023 At What Age Did You Start Smoking Tobacco? 18 Information not available 11/06/2023 Do You Use Any Illicit Or Recreational Drugs? No Information not available 11/06/2023 Has Tobacco Cessation Counseling Been Provided? Yes Information not available 11/05/2023 On What Date Was Tobacco Cessation Counseling Provided? 11/06/2023 Information not available 11/05/2023 How Many Years Have You Smoked Tobacco? 30 Information not available 11/06/2023 Do You Or Have You Ever Used Any Other Forms Of Tobacco Or Nicotine? No Information not available 11/06/2023 Sex: Unknown Functional Status None recorded. Mental Status None recorded. Family History Nothing Reported. Medical History Condition Response HEART VALVE DISORDERS N ATRIAL FIBRILLATION N HEPATITIS / LIVER DISEASE Y HEART DISEASE/HEART PROBLEMS N LUNG DISEASE/DISORDER N HEARTBURN / REFLUX N HYPERTENSION N HIGH CHOLESTEROL / HYPERLIPIDEMIA Y Past Encounters Encounter ID Performer Location Encounter Start Date Encounter Closed Date Diagnosis/Indication Diagnosis SNOMED-CT Code Diagnosis ICD10 Code Diagnosis Note [id number] Chan Torres MD [facility] [address] [address] 01/30/2023 12:17:23 01/30/2023 14:10:38 Localized, primary osteoarthritis of the hand 840565238 M19.049 patient will continue working with therapy for range of motion and strengthen ing. I will see him back in a few months for followup AP lateral and oblique x-rays of the operative hand. Patient can be activity as tolerated. [id number] Chan Torres MD [facility] [address] [place] [address] 11/06/2023 10:08:32 11/06/2023 11:28:44 Pain of left shoulder joint 9267150957 2647703 M25.512 Pain of le ft elbow joint 3418801654 8062060 M25.522 Body mass index 30+ - obesity 447326019 Z68.30 Cervical radiculopathy 10875672 M54.12 We will send him to physical therapy to work on cervical traction and modalities 90% chance of improvemen t with therapy. He needs to avoid hyperexten reymundo and lateral bending to the side irritated with lifting activities . See him back in a few weeks for follow-up Lateral ep icondylitis of left humerus 8491359941 76340 M77.12 sterile technique standard protocol did kneeling and then injected 2 cc xylocaine 2 cc Kenalog over the lateral epicondyla r area. We will put him in therapy to work on Graston technique and stretches. Arthritis of acromioclavicular joint 276302163 M13.819 sterile technique standard protocol injected the left AC joint with 2 cc xylocaine 2 cc Kenalog. We will see him back in a few months for follow-up Health Concerns Section Related Observation LastModified by Organization Detai ls LastModified Time None Recorded Concern Status LastModified by Organization Details LastModified Time None Recorded Advance Directives Directive None Recorded Payers Encounter Date Sequence Insurance Name Policy Number Policy Bailey Covered Member ID Bailey Member ID Guarantor Name 01/30/2023 1 [facility] Xander Seal [id number] Xander Seal 11/06/2023 1 [facility] Xander Seal [id number] Xander Seal Notes Date Note Type Note Provider Name and Address Organization Details Recorded Time 01/30/2023 text/html patient underwen t a carpometacarpal arthroplasty approximately 3 months ago has a little bit of soreness which is typical at this point strength is improving gradually with therapy comes in today for follow-up Chan Torres MD [address] [place], [address], [facility] 01/30/2023 13:58:28 11/06/2023 text/html patient comes in today with left shoulder and left elbow pain been bothering him for a while now 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 Also recently has been having some soreness in his neck with a little tingling in his left thumb no history of any specific trauma. Chan Torres MD [address] [place], [address], [facility] 11/06/2023 12:59:07
--- OUTSIDE RECORDS SUMMARY | 2024-09-08 08:28 | XMS_ITS | Encounter Summary ---
Author Organization [facility] Address [address] [place] [address] Care Team Providers Care Python Developer Name Role Phone Bassem Craig MD Primary Care Provider [phone] Encounter Details Date Type Department Care Team (Late st Contact Info) Description 08/07/2023 Lab Requisition [facility] - DermPath Lab [address] [facility] [place] [address] Mani Medina MD [address] [place] [address] Social History Tobacco Use Types [...] Priority Date/Time Associated Diagnosis Comments DERMATOPATHOLOGY Routine 08/05/2023 3:33 AM SOIL TECHNOLOGIST documented in this encounter Results * DERMATOPATHOLOGY (08/05/2023 3:33 AM SOIL TECHNOLOGIST) Case Report Dermatopathology Report Case: [id number] Authorizing Provider: Mani Medina MD Collected: 08/05/2023 03:33 AM Ordering Location: [facility] DermPath Lab Received: 08/07/2023 07:43 AM Pathologist: Johanna Yanez MD Specimen: Skin, left lat sup buttock 9:06 AM [facility] DERMATOPATHOLOGY LABORATORY Final Diagnosis Specimen A. SKIN, left lat sup buttock: LENTIGINOUS MELANOCYTIC NEVUS, COMPOUND TYPE, IRRITATED (D22.5) (see microscopic description) 9:06 AM [facility] DERMATOPATHOLOGY LABORATORY Clinical History R/O Inflamed vs Dysplastic nevus 9:06 AM [facility] DERMATOPATHOLOGY LABORATORY Gross Description Specimen A: Received is one formalin filled container labeled with the patient's name and designated left lat sup buttock. The specimen consists of a shave biopsy measuring 12d42k6 mm. Jar 0. 9:06 AM [facility] DERMATOPATHOLOGY LABORATORY Microscopic Description Specimen A. SKIN, left lat sup buttock: This is a compound nevus. There is melanin pigment within the stratum corneum. There is a lentiginous proliferation of melanocytes between nests of cells along the dermal-epidermal junction, highlighted by MART-1/Melan-A immunohistochemical staining. There is underlying fibroplasia of the papillary dermis. The intradermal component is bland appearance and matures with depth. Original and deeper sections were reviewed. 9:06 AM [facility] DERMATOPATHOLOGY LABORATORY Disclaimer An external and internal positive and negative controls are appropriate for the histochemical, immunohistochemical and immunofluorescence stain(s) in this case (if any), except where stated explicitly. The performance characteristics of the stain(s) cited in this report were developed and its performance characteristic determined by the Dermatopathology Laboratory at [facility], directed by Dr. Rusty Frost. These tests need not be, and therefore are not, approved by the [place] Food and Drug Administration. The tests are used for clinical purposes. Billing Codes Specimen Charges Stain Charges 10815 1 67761 1 9:06 AM [facility] DERMATOPATHOLOGY LABORATORY Embedded Images 9:06 AM [facility] DERMATOPATHOLOGY LABORATORY Pathology/Cytolo gy TISSUE SPECIMEN FROM SKIN / Unknown 08/05/2023 3:33 AM SOIL TECHNOLOGIST 08/07/2023 7:43 AM SOIL TECHNOLOGIST Mani Medina MD LAB - PATHOLOGY/CYTO LOGY ORDERABLES DERMATOPATHOLOGY LABORATORY [facility] - Department of Dermatology [address], [address] [phone] documented in this encounter Visit Diagnoses Not on filedocumented in this encounter Care Teams Python Developer Relationship Specialty Start Date End Date Bassem Craig MD [address] [place] [address] PCP - General 10/09/17 documented as of this encounter
--- OUTSIDE RECORDS SUMMARY | 2024-09-08 08:28 | XMS_ITS | Referral Summary ---
Author Organization [facility] [address] Address [address] [place] [address] Care Team Providers Care Massage Operator Name Role Phone Bassem Craig MD Primary Care Provider [phone] Allergies No known active allergies Medications metFORMIN (GLUCOPHAGE) 500 mg tablet Take 500 mg by mouth 2 (two) times a day with meals. Active rosuvastatin (CRESTOR) 5 mg tablet Take 5 mg by mouth daily. 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
--- OUTSIDE RECORDS SUMMARY | 2024-09-08 08:28 | XMS_ITS | Clinical Summary ---
Author Organization [facility] Address [address] [place] [address] Care Team Providers Care Shot Bagger Name Role Phone Unavailable Primary Care Provider Unavailabl e Social History Tobacco Use Types Packs/Day Years Used Date Smoking Tobacco: Never Assessed Sex and Gender Information Value Date Recorded Sex Assigned at Not on file Legal Sex Male 7:59 PM CDT Gender Identity Not on file Sexual Orientation Not on file Plan of Treatment Health Maintenance Due Date Last Done Comments Colorectal Cancer Screening Colonoscopy (10 Years) 1967 Annual Physical 1970 Hepatitis C 1985 DTaP, Tdap and Td Vaccines ( 1 - Tdap) 1986 Hepatitis B Vaccines (1 of 3 - 19+ 3-dose series) 1986 Zoster Vaccines (1 of 2) 2017 COVID-19 Vaccine (2023-2 5 season) 2024 Influenza Adult (#1) 2024 Meningococcal B Vaccine Aged Out No l onger eligible based on patient's age to complete this topic Meningococcal Vaccine Aged Out No ellis danielle eligible based on patient's age to complete this topic Pneumococcal Vaccine: Pediat rics (0 to 5 Years) and At-Risk Patients (6 to 64 Years) Aged Out No longer eligible b ased on patient's age to complete this topic RSV Immunizations Under 20 Months Aged Out No longer eligible based on patient's age to complete this topic
== END 2024-09-08 08:19 | disposition home or self-care (01) ==
PROVIDERS: PCP Family Medicine; Visit Provider Family Medicine
DX: R10.9 Unspecified abdominal pain (principal)
CPT/HCPCS: 74018

== ENCOUNTER 2025-01-03 18:43 | Emergency (ER) | payer OTHER, SELFPAY ==
--- NOTE | ~2025-01-03 | XR_ITS ---
EXAM: XR finger 1st RT min 2V DATE: 01/03/2025 19:10 HISTORY: crush to tip yesterday . COMPARISON: None available. FINDINGS: Normal mineralization. Small triangular ossific fragment adjacent to the posterolateral ma rgin of the proximal distal phalanx, with smooth sclerotic margins that suggests chronicity, likely o ld avulsion fracture or fractured osteophyte. No acute fracture or dislocation. No lytic or blastic l esion. Mild scattered degenerative changes. No erosion or periosteal change. Soft tissues within norm al limits. IMPRESSION: No acute osseous finding in the right thumb. Reviewed, dictated and finalized at location K.
--- OUTSIDE RECORDS SUMMARY | 2025-01-03 18:45 | XMS_ITS | Encounter Summary ---
Author Organization [facility] Address [address] [place] [address] Care Team Providers Care Supervisor Asphalt Paving Name Role Phone aBssem Craig MD Primary Care Provider [phone] Encounter Details Date Type Department Care Team (Late st Contact Info) Description 12/10/2017 Lab Requisition [facility] Care DermPath Lab [address] [place] [address] Mani Medina MD [address] [place] [address] Social History Tobacco Use Types Packs/Day Years Used Date Smoking Tobacco: Every Day Cigarettes 0.4 20 Alcohol Use Standard Drinks/Week Comments Yes 3.3 (1 standard drink = 0.6 oz p ure alcohol) Sex and Gender Information Value Date Recorded Sex Assigned at Not on file 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 Gender Identity Not on file Sexual Orientation Not on file documented as of this encounter Plan of Treatment Not on file documented as of this encounter Procedures Procedure Name Priority Date/Time Associated Diagnosis Comments DERMATOPATHOLOGY Routine 12/09/2017 12:0 0 AM CDT documented in this encounter Results * DERMATOPATHOLOGY (12/09/2017 12:00 AM CDT) Case Report Dermatopathology Report Case: [id number] Authorizing Provider: Mani Medina MD Collected: 12/09/2017 12:00 AM Pathologist: Briana Frost MD Received: 12/10/2017 12:02 PM Specimen: Skin, left chest 4:24 PM CDT DERMATOPATHOLOGY LABORATORY Final Diagnosis Specimen A. SKIN, left chest: SEBACEOUS HYPERPLASIA (L73.8) 4:24 PM CDT DERMATOPATHOLOGY LABORATORY at 1624 CDT Clinical History R/O SH vs SCC vs BCC vs nevus. 4:24 PM CDT DERMATOPATHOLOGY LABORATORY Gross Description Specimen A: Received is one formalin filled container labeled with the patient's name and designated left chest. The specimen consists of a shave biopsy measuring [id number]. Jar 0. 4:24 PM CDT DERMATOPATHOLOGY LABORATORY [...] characteristic determined by the Dermatopathology Laboratory at [facility]. These tests need not be, and therefore are not, approved by the [place] Food and Drug Administration. The tests are used for clinical purposes. Billing Codes Specimen Charges Stain Charges 97395 1 4:24 PM CDT DERMATOPATHOLOGY LABORATORY Embedded Images 4:24 PM CDT DERMATOPATHOLOGY LABORATORY Pathology/Cytolog y TISSUE SPECIMEN FROM SKIN / Unknown 12/09/2017 12/10/2017 12:02 PM CDT us Mani Medina MD LAB - PATHOLOGY/CYTOLOGY ORD ERABLES Final Result DERMATOPATHOLOGY LABORATORY [facility] - Department of Dermatology [address] [facility], [address]th [place] [address], [facility] [phone] documented in this encounter Visit Diagnoses Not on filedocumented in this encounter Care Teams Supervisor Asphalt Paving Relationship Specialty Start Date End Date Bassem Craig MD [address] [place] [address] PCP - General 10/09/17 documented as of this encounter
--- OUTSIDE RECORDS SUMMARY | 2025-01-03 18:45 | XMS_ITS | Clinical Summary ---
Author Organization [facility] Address [address] [place] [address] Care Team Providers Care Rehab Consultant Name Role Phone Bassem Craig MD Primary Care Provider [phone] Source Comments [facility],non-[facility] Affiliates and Associated Physician Practices is amultiple site organization consisting of ambulatory clinics and hospital sitesin [place], [place], [place] and [place]. This disclosure is being madepursuant to the Care Everywhere program and may not contain all information available regarding this patient. Last updated 18.[facility] Allergies No known active allergies Medications * Be aware that medications may not be up to date on this document. Alwaysverify current medications with the patient. hydrocodone-acet aminophen (NORCO) 5-325 MG tablet as needed. 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 Gender Identity Not on file Sexual Orientation Not on file Last Filed Vital Signs Vital Sign Reading Time Taken Comments Blood Pressure 123/77 04/29/2013 9:48 AM PYTHON WEB DEVELOPER Pulse 80 04/29/2013 9:48 AM PYTHON WEB DEVELOPER Temperature 36.9 C (98.5 F) 04/29/2013 9:48 AM PYTHON WEB DEVELOPER Respiratory Rate 18 04/29/2013 9:48 AM PYTHON WEB DEVELOPER Oxygen Saturation - - Inhaled Oxygen Concentration - - Weight 102.1 kg (225 lb) 11/01/2013 10:49 AM CDT Height 175.3 cm (5' 9) 11/01/2013 10:49 AM CDT Body Mass Index [...] 50+ (1 of 2 - PCV) 1986 ZOSTER VACCINE (1 of 2) 2017 COVID-19 VACCINE ( - 2023-2 5 season) 2024 DEPRESSION SCREENING 06/16/2024 INFLUENZA VACCINE (#1) 2025 06/16/2010 HIB VACCINE Aged Out No longer eligi [...] on patient's age to complete this topic Insurance [facility] Member Subscriber Plan / Payer (Ef fective 2012-Present) Name:Jayjay Hammond Relation to Subscriber:Spouse Name:NIRALI HESS Subscriber ID:Not on file Date of :1972 Payer ID:[id number] (NAIC) Type:HMO Address: [place] [phone] [facility] Care Teams Rehab Consultant Relationship Specialty Start Date End Date Bassem Craig MD [address] [place] [address] PCP - General 10/09/17
--- OUTSIDE RECORDS SUMMARY | 2025-01-03 18:45 | XMS_ITS | Clinical Summary ---
Author Organization [facility] Address [address] [place] [address] Care Team Providers Care Detailer Pharmaceuticals Name Role Phone Unavailable Primary Care Provider [...] of 3 - 19+ 3-dose series) 1986 Pneumococcal Vaccine: 50+ Ye ars (1 of 1 - PCV) 2017 Zoster Vaccines (1 of 2) 2017 COVID-19 Vaccine (2023-2 5 season) 2024 Meningococcal B Vaccine Aged Out No l onger eligible based on patient's age to complete this topic Meningococcal Vaccine Aged Out No ellis danielle eligible based on patient's age to complete this topic RSV Immunizations Under 20 Months Aged Out No longer eligible based on patient's age to complete this topic
--- OUTSIDE RECORDS SUMMARY | 2025-01-03 18:45 | XMS_ITS | Encounter Summary ---
Author Organization [facility] Address [address] [facility] [place] [address] Care Team Providers Care Electrical Lineman Name Role Phone Bassem Craig MD Primary Care Provider [phone] Encounter Details Date Type Department Care Team (Late st Contact Info) Description 03/05/2023 Lab Requisition [facility] - DermPath Lab [address] [facility] [place] [address] Mani Medina MD [address] [place] [address] Social History Tobacco Use Types Packs/Day Years Used Date Smoking Tobacco: Every Day Cigarettes 0.4 20 Alcohol Use Standard Drinks/Week Comments Yes 3.3 (1 standard drink = 0.6 oz p ure alcohol) Sex and Gender Information Value Date Recorded Sex Assigned at Not on file 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 Gender Identity Not on file Sexual Orientation Not on file documented as of this encounter Plan of Treatment Not on file documented as of this encounter Procedures Procedure Name Priority Date/Time Associated Diagnosis Comments DERMATOPATHOLOGY Routine 03/04/2023 12:0 0 AM CDT documented in this encounter Results * DERMATOPATHOLOGY (03/04/2023 12:00 AM CDT) Case Report Dermatopathology Report Case: [id number] Authorizing Provider: Mani Medina MD Collected: 03/04/2023 12:00 AM Ordering Location: [facility] DermPath Lab Received: 03/05/2023 01:50 PM Pathologist: Gretel Narvaez MD Specimen: Skin, left distal anteromedial thigh 3:18 PM CDT DERMATOPATHOLOGY LABORATORY Final Diagnosis Specimen A. SKIN, left distal anteromedial thigh: SEBORRHEIC KERATOSIS, IRRITATED AND INFLAMED (L82.0) APPROXIMATES MARGIN 3:18 PM CDT DERMATOPATHOLOGY LABORATORY at 1518 CDT Clinical History R/O SCC vs ISK Flamed [...] characteristic determined by the Dermatopathology Laboratory at [facility], directed by Dr. Rusty Frost. These tests need not be, and therefore are not, approved by the [place] Food and Drug Administration. The tests are used for clinical purposes. Billing Codes Specimen Charges Stain Charges 87470 1 3 3:18 PM CDT DERMATOPATHOLOGY LABORATORY Embedded Images 3:18 PM CDT DERMATOPATHOLOGY LABORATORY Pathology/Cytolog y TISSUE SPECIMEN FROM SKIN / Unknown 03/04/2023 03/05/2023 1:50 PM CDT Mani Medina MD LAB - PATHOLOGY/CYTOLOGY ORD ERABLES Final Result DERMATOPATHOLOGY LABORATORY [facility] - Department of Dermatology [facility] Medicine [address] [place] [address], [address] [phone] documented in this encounter Visit Diagnoses Not on filedocumented in this encounter Care Teams Electrical Lineman Relationship Specialty Start Date End Date Bassem Craig MD [address] [place] [address] PCP - General 10/09/17 documented as of this encounter
--- OUTSIDE RECORDS SUMMARY | 2025-01-03 18:45 | XMS_ITS | Encounter Summary ---
Author Organization [facility] Address [address] [facility] [place] [address] Care Team Providers Care Electric Truck Driver Name Role Phone Bassem Craig MD Primary Care Provider [phone] Encounter Details Date Type Department Care Team (Late st Contact Info) Description 08/07/2023 Lab Requisition [facility] - DermPath Lab [address] [facility] [facility] [place] [address] Mani Medina MD [address] [place] [address] Social History Tobacco Use Types Packs/Day Years Used Date Smoking Tobacco: Every Day Cigarettes 0.4 20 Alcohol Use Standard Drinks/Week Comments Yes 3.3 (1 standard drink = 0.6 oz p ure alcohol) Sex and Gender Information Value Date Recorded Sex Assigned at Not on file Legal Sex Male 5:14 AM DIRECTOR PHARMACOLOGY Gender Identity Not on file Sexual Orientation Not on file documented as of this encounter Plan of Treatment Not on file documented as of this encounter Procedures Procedure Name Priority Date/Time Associated Diagnosis Comments DERMATOPATHOLOGY Routine 08/05/2023 3:33 AM DIRECTOR PHARMACOLOGY documented in this encounter Results * DERMATOPATHOLOGY (08/05/2023 3:33 AM DIRECTOR PHARMACOLOGY) Case Report Dermatopathology Report Case: [id number] Authorizing Provider: Mani Medina MD Collected: 08/05/2023 03:33 AM Ordering Location: [facility] DermPath Lab Received: 08/07/2023 07:43 AM Pathologist: Johanna Yanez MD Specimen: Skin, left lat sup buttock 9:06 AM [facility] DERMATOPATHOLOGY LABORATORY Final Diagnosis Specimen A. SKIN, left lat sup buttock: LENTIGINOUS MELANOCYTIC NEVUS, COMPOUND TYPE, IRRITATED (D22.5) (see microscopic description) 9:06 AM [facility] DERMATOPATHOLOGY LABORATORY at [address] [facility] Clinical History R/O Inflamed vs Dysplastic nevus 9:06 AM [facility] DERMATOPATHOLOGY LABORATORY Gross Description Specimen A: Received is one formalin filled container labeled with the patient's name and designated left lat sup buttock. The specimen consists of a shave biopsy measuring 12y61h4 mm. Jar 0. 9:06 AM [facility] DERMATOPATHOLOGY LABORATORY Microscopic Description Specimen A. SKIN, [...] and deeper sections were reviewed. 9:06 AM [facility] DERMATOPATHOLOGY LABORATORY Disclaimer An external and internal positive and negative controls are appropriate for the histochemical, immunohistochemical and immunofluorescence stain(s) in this case (if any), except where stated explicitly. The performance characteristics of the stain(s) cited in this report were developed and its performance characteristic determined by the Dermatopathology Laboratory at [facility], directed by Dr. Rusty Frost. These tests need not be, and therefore are not, approved by the [place] Food and Drug Administration. The tests are used for clinical purposes. Billing Codes Specimen Charges Stain Charges 52705 1 27738 1 9:06 AM [facility] DERMATOPATHOLOGY LABORATORY Embedded Images 9:06 AM [facility] DERMATOPATHOLOGY LABORATORY Pathology/Cytolo gy TISSUE SPECIMEN FROM SKIN / Unknown 08/05/2023 3:33 AM DIRECTOR PHARMACOLOGY 08/07/2023 7:43 AM DIRECTOR PHARMACOLOGY us Mani Medina MD LAB - PATHOLOGY/CYTOLOGY ORD ERABLES Final Result DERMATOPATHOLOGY LABORATORY [facility] - Department of Dermatology [facility] [address] [place] [address], [address] [phone] documented in this encounter Visit Diagnoses Not on filedocumented in this encounter Care Teams Electric Truck Driver Relationship Specialty Start Date End Date Bassem Craig MD [address] [place] [address] PCP - General 10/09/17 documented as of this encounter
--- OUTSIDE RECORDS SUMMARY | 2025-01-03 18:45 | XMS_ITS | Referral Summary ---
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 Gender Identity Not on file Sexual Orientation [...] AM C DT Height 175.3 cm (5' 9) 09/10/2017 8:58 AM CDT Body Mass Index 32.56 09/10/2017 8:58 AM CDT Plan of Treatment Not on file Insurance [facility] HMO/PPO Address: [address] [place] [id number] [facility] CHOICE PLUS [facility] HMO/PPO Address: [address] [place] [address] Care Teams Senior Commissions Analyst Relationship Specialty Start Date End Date Bassem Craig MD [address] [place] [address] PCP - General 11/30/15
--- OUTSIDE RECORDS SUMMARY | 2025-01-03 18:45 | XMS_ITS | Clinical Summary ---
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
--- OUTSIDE RECORDS SUMMARY | 2025-01-03 18:45 | XMS_ITS | Data Portability ---
Author Organization [place] - [facility], [facility] V[facility] Address [address] [place] [address] Care Team Providers Care Box Attacher Name Role Phone CHAN TORRES Orthopedic Surgeon Assessment No assessment recorded. Plan of Treatment Reminders Order Date Submit Date Provider Last Modified By Organization Details Last Modified Time Details Appointments None recorded. Lab None recorded. Referral physical therapist referral - Left Shoulder-AC arthritis-C 6 Left Radicapathy , Left lateral Epicondylit is-2 times a week for 3 weeks- Hotpacks, ultrasound, Phonophores is, ROM, Strengtheni ng, Ra, Cervical Traction 2023 024 MIKAYLA Hotchkiss, [address] [place] [address], [place], [address], 4 14:07:19 Procedures None recorded. Surgeries None [...] 3 weeks- Hotpacks, ultrasound, Phonophoresis, ROM, Strengthening, [place], Cervical Traction Referring Physician: Chan Torres, Orthopedic Surgery, Encounter Date: 11/06/2023 Results Created Date Observation Date Name Description Value Unit Range Abnormal Flag Note LastModifiedBy Organization Detail LastModifiedTime 11/07/19 24 11/06/2023 XR, shoul klaus, 2 or more view No observ ation record ed. [facility] [address], [place], [address], 11/17/2023 18:15:09 11/07/19 24 11/06/2023 XR, elbow , 3 or more view No observ ation record ed. [facility] [address], [place], [address], 11/17/2023 18:15:10 Result Notes None recorded. Problems Name Problem SNOMED Code Status Onset Date Resolution Date Notes Provider Name and Address Organization Details Recorded Time Localized, primary osteoarthri tis of the hand 677615897 Active 2022 [place] [address] [place] [address], [phone], [facility] 3 13:57:49 Pain of left elbow joint 1158351127570 9104 Active 2023 Jermain bartlett, [facility] 4 14:48:05 Pain of left shoulder joint 8572431796679 9109 Active 2023 Jermain bartlett, [facility] 4 14:50:00 Cervical radiculopat hy 76197146 Active 2023 Chan Torres MD [address] [place] [address], [phone], [facility] 4 12:57:58 Lateral epicondylit is of left humerus 3112198338336 00 Active 2023 [place] [address] [place] [address], [phone], [facility] 4 12:58:03 Arthritis of acromioclav icular joint 709701471 Active 2023 [place] [address] [place] [address], [phone], [facility] 4 12:58:07 Problem Notes None recorded. Medical Equipment None Reported. [...] No t Available Vitals Date Recorded Body height Body mass index (BMI) Body weight Heart rate Oxygen saturation Oxygen saturation in Arterial blood by Pulse oximetry Systolic And Diastolic Provider Name and Address Organization Details Last Updated DateTime 4 177.8 cm 30.4 kg/m2 33598.5 8 g 90 /min 96 % 96 % 116/91 mm[Hg] Petra [place] [facility] 4 10:17:00 Date Recorded Body weight Heart rate Oxygen saturation Oxygen saturation in Arterial blood by Pulse oximetry Systolic And Diastolic Provider Name and Address Organization Details Last Updated DateTime 3 51633.8 1 g 100 /min 95 % 95 % 135/80 mm[Hg] Jermain Acuña [facility] 3 13:49:53 Social History Question Answer Notes LastModified by Organizat ion Details LastModified Time Tobacco Smoking Status Current Every Day Smoker Petra [place] [facility] 11/06/2023 10:18:24 Do You Feel Hopeless Or [...] Smoking Tobacco? 16 Information not available 11/06/2023 Has Tobacco Cessation Counseling Been Provided? Yes Information not available 11/05/2023 On What Date Was Tobacco Cessation Counseling Provided? 11/06/2023 Information not available 11/05/2023 How Many Years Have You Smoked Tobacco? 30 Information not available 11/06/2023 Sex: Unknown Functional Status Question Answer Note LastModified by Organizat ion Details LastModified Time Do you use any illicit or recreational drugs? No Information not available 11/06/2023 Do you or have you ever used any other forms of tobacco or nicotine? No Information not available 11/06/2023 Mental Status None recorded. Family History Nothing Reported. Medical History Condition Response HEART VALVE DISORDERS N LUNG DISEASE/DISORDER N HEARTBURN / REFLUX N HIGH CHOLESTEROL / HYPERLIPIDEMIA Y HEPATITIS / LIVER DISEASE Y HEART DISEASE/HEART PROBLEMS N HYPERTENSION N ATRIAL FIBRILLATION N Past Encounters Encounter ID Performer Location Encounter Start Date Encounter Closed Date Diagnosis/Indication Diagnosis SNOMED-CT Code Diagnosis ICD10 Code Diagnosis Note [id number] Chan Torres MD [facility] [address] [address] 01/30/2023 12:17:23 01/30/2023 14:10:38 Localized, primary osteoarthritis of the hand 462820101 M19.049 patient will continue working with therapy for range of motion and strengthen ing. I will see him back in a few months for followup AP lateral and oblique x-rays of the operative hand. Patient can be activity as tolerated. [id number] Chan Torres MD [facility] [place] [address] [place] [address] 11/06/2023 10:08:32 11/06/2023 11:28:44 Pain of left shoulder joint 6525726035 6405133 M25.512 Pain of le ft elbow joint 1044383444 8207422 M25.522 Body mass index 30+ - obesity 563954117 Z68.30 Cervical radiculopathy 48654194 M54.12 We will send him to physical therapy to work on cervical traction and modalities 90% chance of improvemen t with therapy. He needs to avoid hyperexten reymundo and lateral bending to the side irritated with lifting activities . See him back in a few weeks for follow-up Lateral ep icondylitis of left humerus 3477703351 78903 M77.12 sterile technique standard protocol did kneeling and then injected 2 cc xylocaine 2 cc Kenalog over the lateral epicondyla r area. We will put him in therapy to work on Graston technique and stretches. Arthritis of acromioclavicular joint 751722724 M13.819 sterile technique standard protocol injected the left AC joint with 2 cc xylocaine 2 cc Kenalog. We will see him back in a few months for follow-up Health Concerns Section Related Observation LastModified by Organization Detai ls LastModified Time None Recorded Concern Status LastModified by Organization Details LastModified Time None Recorded Advance Directives Directive None Recorded Payers Insurance Date Sequence Insurance Name Policy Number Policy Bailey Covered Member ID Bailey Member ID Guarantor Name 11/05/2023 1 [facility] Xander Negrete [id number] Xander Negrete Notes Date Note Type Note Provider Name and Address Organization Details Recorded Time 01/30/2023 text/html patient sushma al a carpometacarpal arthroplasty approximately 3 months ago has a little bit of soreness which is typical at this point strength is improving gradually with therapy comes in today for follow-up Chan Torres MD [address] [place], [address], [facility] 01/30/2023 13:58:28 11/06/2023 text/html patient comes in today with left shoulder and left elbow pain been bothering him for a while now states 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 Also recently has been having some soreness in his neck with a little tingling in his left thumb no history of any specific trauma. Chan Torres MD [address] [place], [address], [facility] 11/06/2023 12:59:07
--- OUTSIDE RECORDS SUMMARY | 2025-01-03 18:45 | XMS_ITS | Data Portability ---
Author Organization [place] [facility], Main Office Address [address] [place] [address] Care Team Providers Care Certified Medical Asst Name Role Phone SLADE LANZA Primary Care Provider SLADE LANZA Referring Provider [phone] Assessment Encounter Date Assessment Date Assessment LastModified by Organization Details LastModified Time 10/22/2022 10/22/2022 57-year-old male 2 weeks status post left CMC arthroplasty with LRTI on 10/09/2022. Patient has been doing well and his pain has been well controlled, although he did have some cramping in his forearm. postoperative splint and sutures were taken out today in the clinic. Patient was provided with and fitted for a left thumb spica wrist brace. He will follow-up in 4 weeks for postoperative follow-up and we will obtain x-rays at that time. [email or web address] Not available 10/22/2022 13:26:15 11/19/2022 11/19/2022 57-year-old male approximately 6 weeks status post left thumb CMC arthroplasty with LRTI on 10/09/2022. Patient has been doing well and has remained in his thumb spica brace. He he may transition out of the removable thumb spica wrist brace, only wearing it when doing strenuous activity or in crowded places when he wants to protect the thumb. We will refer him to occupational therapy to work on thumb range of motion strengthening and modalities. We discussed that the swelling in his thumb should improve with time. He will follow-up in 8 weeks for re-evaluation and we will repeat x-ray at that time. [email or web address] Not available 11/19/2022 12:25:32 01/22/2023 01/22/2023 57-year-old male approximately 3 months status post left thumb CMC arthroplasty with LRTI performed on 10/09/2022. Patient is doing well and would like to complete another course of physical therapy as he does not think he is doing the exercises correctly for strengthening his thumb. We discussed that at 3 months he will have approximately 25% of his original thumb strength which will increase to 50% at 6 months and 100% at 1 year. We will provide him with another referral to physical therapy to continue with some strengthening and transition to a home exercise program. In regards to his radial styloid tenosynovitis we discussed possible treatment options including activity modification, bracing, oral steroids. Patient is not interested in treatment For his tenosynovitis at this time but may consider in the future. He will follow-up in 3 months for re-evaluation, but if he is doing well he may cancel his visit. [email or web address] Not available 01/22/2023 14:54:13 10/27/2024 10/27/2024 HPI: 59 year old male presents today for evaluation of left shoulder and left elbow pain that has been ongoing for a few weeks. States that it started with elbow pain, then a week later, started experiencing shoulder pain. Regarding the elbow, pain is intermittent and localized to the lateral condyle. Regarding the shoulder, pain is intermittent and localized to the anterior aspect. Pain is aggravated by movement, specifically with abduction and internal rotation. Denies any injury to the elbow or shoulder. Currently rates pain as 4/10 and has not tried anything for pain relief. 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 Physical Exam: General: Normal appearance. No acute distress. Inspection: No evidence of swelling, erythema, bruising or deformity. Palpation: Tenderness to palpation of the coracoid process. Nontender to palpation around the elbow. ROM: Full ROM of the elbow and shoulder. Pain with shoulder abduction starting at 90 and pain with IR. Special Test: Shoulder: Positive Clarke-Thom and Neers Tests, Negative Empty Can test, Negative Drop Arm. Negative ER Lag. Negative IR lag. Negative Cross Arm Test. Negative Yergason. Elbow: No pain with resisted wrist extension, passive wrist flexion, or resisted supination. Slight pain with resisted middle finger extension. Motor: 5/5 strength. Sensation: Sensation intact. Imaging: Xray reviewed, demonstrating no evidence of fractures or bony abnormalities. Joint space is well maintained. Acromion Type 2 Assessment & Plan: Most likely experiencing rotator cuff tendinitis and lateral epicondylitis due to repetitive lifting. PT ordered. Meloxicam for pain and inflammation He has a counter-force strap, advised to start using that again. Follow Up: 6-8 weeks after a course of PT. If no improvement can consider an injection vs MRI. All questions were answered. Patient verbalized understanding of treatment plan [email or web address] Not available 10/27/2024 11:56:36 12/22/2024 12/22/2024 59-year-old patient presents today for follow-up of left shoulder pain and left lateral epicondylitis. He has finished physical therapy but states that it was not helpful. He took meloxicam for a few days and did not feel like it was helpful. He purchased a counterforce strap for the elbow but then lost it so he did not wear it. He rates his pain today a 6/10. Exam unchanged. Today we discussed risks and benefits of a cortisone injection into the left shoulder. He elected due proceed with this today. He states he wants to know what is wrong with the shoulder so he would like to proceed with an MRI. We will order that for him. For the epicondylitis we recommend wearing the counterforce strap, taking the meloxicam, using Voltaren, and doing the stretching exercises. We discussed that if the pain continues after trying these things that we can do a 1 time cortisone injection. We will see him back to go over the MRI. [email or web address] Not available 12/24/2024 11:00:05 Plan of Treatment Reminders Order Date Submit Date Provider Last Modified By Organization Details Last Modified Time Details Appointments Any 5 2024 08:40A Briana Osman MD Not available Not available Not available Lab None recorded. Referral physical therapist referral - Please contact pt to schedule for L shoulder and L elbow. Thanks 2024 025 MIKAYLA Myles, [address] [facility] [facility], [place], [address], 11/02/2024 14:27:08 occupatio nal therapist referral - Please schedule pt for L hand. Strengthe dae and home exercise program. Thanks 2022 023 [email or web address] [facility] [place] [facility], [address], [address], 02/12/2023 09:00:57 occupatio nal therapist referral - L-THUMB ROM, STRENGTHE N, MODALITIE S, HEP 2022 023 [email or web address] [facility], [address] [place], [address], 11/19/2022 12:08:23 Procedures injection /aspirati on joint/bur sa (PROC) 2024 025 [email or web address] 1 In-Office Order, Internal Use Only DO Not Attach Compendium DO Not Attach Compendium, Do Not Delete/merge, [id number] 12/22/2024 10:19:18 Surgeries None recorded. Imaging MRI, shoulder, w/o contrast - please provide patient with a disc, thanks [facility] [address] Keren Najera, [address] [facility], [place], [address], 12/23/2024 15:05:16 XR, shoulder, 2 or more view 2024 025 price [facility] [place], [address], [place], [address], 10/27/2024 14:09:26 XR, hand, 3 or more view 2022 023 [email or web address] a [facility] [place], [address], [place], [address], 11/19/2022 12:25:58 Medication Orders bupivacai ne HCl 0.5 % (5 mg/mL) injection solution 2024 025 [email or web address] [facility], [address], [place], [place], [phone], 12/22/2024 11:33:33 Kenalog 10 mg/mL suspensio n for injection 2024 025 [email or web address] [facility] #63339, [address], [place], [id number], 12/22/2024 11:33:33 meloxicam 15 mg tablet 2024 025 [email or web address] [facility] #65806, [address], [place], [place], [phone], 10/27/2024 14:09:26 Patient TargetsNo targets recorded. Patient InstructionsNo instructions recorded. Reason for Referral Occupational Therapist Refer ral for Osteoarthrosis of the carpometacarpal joint of the thumb L-THUMB ROM, STRENGTHEN, MODALITIES, HEP Referring Physician: [facility], Encounter Date: 11/19/2022 Occupational Therapist Refer ral for Pain in left thumb L hand/ L thumb Please schedule pt for L hand. Strengthening and home exercise program. Thanks Referring Physician: [facility], Encounter Date: 01/22/2023 Physical Therapist Referral for Pain of left shoulder region L shoulder/L elbow Please contact pt to schedule for L shoulder and L elbow. Thanks Referring Physician: Pennie Amador, Orthopedic Surgery, Encounter Date: 10/27/2024 Results Created Date Observation Date Name Description Value Unit Range Abnormal Flag Note LastModifiedBy Organization Detail LastModifiedTime 11/20/19 23 XR, hand, 3 or more view No observ ation record ed. [email or web address] [facility] [place] [address], [place], [address], 11/19/2022 12:25:57 11/06/19 24 xr shoul klaus lt 2V+ [facility] [address] [facility], [place] [address] Patien t Name: XANDER HAMMOND Access ion #: [id number] Sex: M : 1965 9 4 Dictat ed By: Geo Coronado ms Attend ing Physic noelle: CHAN TORRES Physic noelle: CHAN TORRES Exam Date: 2023 08:45 AM Exam Name: XR SHOULD ER LT 2V+ Admitt ing Diagno sis(es ): PROCED URE: Left should er radiog raphs. INDICA TION: Pain. TECHNI QUE: 4 views of the left should er were obtain ed. COMPAR LILLI: None. FINDIN GS: There is no eviden ce of fractu re or disloc ation. Joint spaces are mainta ined. The soft tissue s are unrema rkable . IMPRES JIHAN: 1. No fractu re or disloc ation. Electr onical ly Signed by: Geo Coronado ms at 2023 09:08: 10 AM Page 1 [email or web address] [facility] ([facility]) [address] [place], [address], 02/05/2024 14:19:28 11/06/19 24 XR, elbow , 3 or more view [facility] [address] [place] [address] Patien t Name: XANDER HAMMOND ion #: [id number] Sex: M : 1965 9 4 Dictat ed By: Shawna aguilar Attend ing Physic noelle: CHAN TORRES Physic noelle: CHAN TORRES Exam Date: 2023 08:45 AM Exam Name: XR ELBOW LT 3V Admitt ing Diagno sis(es ): CLINIC AL INFORM ATION: Left elbow pain. TECHNI QUE: 3 views of the left elbow were obtain ed, includ ing AP, latera l, and obliqu e views. COMPAR LILLI: No prior studie s. FINDIN GS: No acute fractu re or disloc ation. Mild spurri ng at the latera l epicon dyles. No signif icant joint effusi on. [place] ing soft tissue s are unrema rkable . IMPRES JIHAN: No eviden ce of acute bony abnorm ality. Electr onical ly Signed by: Shawna aguilar at 2023 09:14: 27 AM Page 1 [email or web address] [facility] ([facility] [address] [place], [address], 02/05/2024 14:19:28 10/28/19 25 XR, shoul klaus, 2 or more view No observ ation record ed. [facility] [place] [address], [place], [address], 10/27/2024 11:56:39 Result Notes Documentation Provider Name and Address Organization Details Recorded Time Xr, Elbow, 3 Or More View : [facility] [address] [place], [place] [id number] Patient Name: XANDER HAMMOND Sex: M : 1965 Dictated By: Merlin Miguel Attending Physician: CHAN TORRES Ordering Physician: CHAN TORRES Exam Date: 11/06/2023 08:45 AM Exam Name: XR ELBOW LT 3V Admitting Diagnosis(es): CLINICAL INFORMATION: Left elbow pain. TECHNIQUE: 3 views of the left elbow were obtained, including AP, lateral, and oblique views. COMPARISON: No prior studies. FINDINGS: No acute fracture or dislocation. Mild spurring at the lateral epicondyles. No significant joint effusion. Overlying soft tissues are unremarkable. IMPRESSION: No evidence of acute bony abnormality. Page 1 Berna Schroeder APRN [address] [facility], [place], [address], [facility] [employer] 02/05/2024 14:19:28 Problems Name Problem SNOMED Code Status Onset Date Resolution Date Notes Provider Name and Address Organization Details Recorded Time Lateral epicondyli tis 204174410 Active Not Available [employer] 13:34:55 Shoulder joint pain 550779374 Active Not Available [employer] 3 13:34:55 Bicipital tenosynovi tis 97679436 Active Not Available [facility] 3 13:34:55 Pain in finger of left hand 4188306346198 05 Active 2022 Karely Ramachandran RMA null, [place] [facility] 3 10:58:47 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 73621785 Active 2022 Karely Ramachandran RMA null, [place] [facility] 3 10:58:54 Pain in left thumb 8552681205246 100 Active 2022 Karely Ramachandran RMA null, [place] [facility] 3 10:59:57 Pain of left shoulder region Active 2024 Kaylen Triplett TEST AND RESEARCH REACTOR OPERATOR null, [place] [facility] 5 09:59:08 Pain of left elbow joint 4412262615097 9104 Active 2024 Kaylen Triplett TEST AND RESEARCH REACTOR OPERATOR null, [place] [facility] 5 09:59:19 Problem Notes None recorded. Procedures Surgical History Date Name Laterality Status Provider Name and Address Organization Details Recorded Time 12/23/19 25 Ortho - Cortisone Injection completed Judy Correa NP [address], [address], [facility] 12/24/2024 11:00:58 Hernia Repair completed Not Available [facility] 08/14/2022 13:34:45 [facility]endectomy completed Not Available [facility] 08/14/[facility] 13:34:45 Imaging Results None recorded. Procedure Notes None recorded. Medical Equipment None Reported. Medications Name Sig Start Date Stop Date Status Note LastModified by Organization Details LastModified Time doxepin 25 mg capsule TAKE 1 CAPSULE BY MOUTH EVERY DAY AT BEDTIME active Not Available Not Available No t Available meloxicam 15 mg tablet TAKE 1 TABLET BY MOUTH EVERY DAY active Not Available Not Available No t Available bupivacaine HCl 0.5 % (5 mg/mL) injection solution Take 4 mL by injection route. 2024 active Not Available Not Available Not Avai lable fluorouraci l 5 % topical cream 07/16 completed Not Available Not Available Not Available amoxicillin 875 mg tablet TAKE 1 TABLET BY MOUTH EVERY 12 HOURS FOR 10 DAYS 07/16 completed Not Available Not Available Not Available Kenalog 10 mg/mL suspension for injection Take 1 mL by injection route. 2024 active NDC: 0003- 0494- 20 Not Available Not Available Not Available hydrocodone 7.5 mg-acetamin ophen 325 mg tablet 10/27 completed Not Available Not Available Not Available cephalexin 500 mg capsule TAKE ONE CAPSULE BY MOUTH EVERY 8 HOURS UNTIL ALL TAKEN 10/27 completed Not Available Not Available Not Available erythromyci n 5 mg/gram (0.5 %) eye ointment 07/16 completed Not Available Not Available Not Available metformin 1,000 mg tablet TAKE 1 TABLET BY MOUTH TWICE DAILY active Not Available Not Available No t Available lisinopril 2.5 mg tablet TAKE 1 TABLET BY MOUTH DAILY 07/16 completed Not Available Not Available Not Available amoxicillin 500 mg-potassiu m clavulanate 125 mg tablet TAKE 1 TABLET BY MOUTH THREE TIMES DAILY UNTIL ALL TAKEN 07/16 completed Not Available Not Available Not Available neomycin 3.5 mg/g-polymy bhavin B 10,000 unit/g-dexa meth 0.1 % eye oint APPLY A SMALL AMOUNT TO RIGHT EYELIDS THREE TIMES DAILY 07/16 completed Not Available Not Available Not Available rosuvastati n 5 mg tablet TAKE 1 TABLET BY MOUTH DAILY active Not Available Not Available No t Available lidocaine (PF) 10 mg/mL (1 %) injection solution In office injection administe red by the provider 07/16 completed NDC: 0409- 4276- 17 Not Available Not Available Not Available ropivacaine (PF) 5 mg/mL (0.5 %) injection solution in office inj 10/27 completed [facility] 11330 -064- 01 Not Available Not Available Not Available Invokamet 50 mg-1,000 mg tablet TAKE 1 TABLET BY MOUTH TWICE DAILY 04/17 completed Not Available Not Available Not Available Rybelsus 7 mg tablet TAKE 1 TABLET BY MOUTH DAILY 07/16 completed Not Available Not Available Not Available Rybelsus 3 mg tablet TAKE 1 TABLET BY MOUTH DAILY 04/17 completed Not Available Not Available Not Available ID NOW COVID-19 Test Kit TEST DIRECTED 07/16 completed Not Available Not Available Not Available Mounjaro 7.5 mg/0.5 mL subcutaneou s pen injector ADMINISTE R 7.5 MG UNDER THE SKIN WEEKLY 10/27 completed Not Available Not Available Not Available Mounjaro 5 mg/0.5 mL subcutaneou s pen injector ADMINISTE R 5 MG UNDER THE SKIN WEEKLY 10/27 completed Not Available Not Available Not Available Mounjaro 10 mg/0.5 mL subcutaneou s pen injector ADMINISTE R 10 MG UNDER THE SKIN WEEKLY active Not Available Not Available No t Available Mounjaro 12.5 mg/0.5 mL subcutaneou s pen injector ADMINISTE R 12.5 MG UNDER THE SKIN WEEKLY active Not Available Not Available No t Available Vitals Date Recorded Body height Body mass index (BMI) Body weight Provider Name and Address Organization Details Last Updated DateTime 10/22/2022 175.26 cm 32.5 kg/m2 15940.32 g Karely Ramachandran [employer] 10/22/2022 10:58:22 Date Recorded Body height Body mass index (BMI) Body weight Provider Name and Address Organization Details Last Updated DateTime 10/27/2024 177.8 cm 27.3 kg/m2 37068.55 g Kaylen Triplett CNA [employer] [facility] 10/27/2024 09:46:32 Date Recorded Body height Body mass index (BMI) Body weight Provider Name and Address Organization Details Last Updated DateTime 11/19/2022 175.26 cm 32.5 kg/m2 10730.32 g Karely Ramachandran [employer] 11/19/2022 10:59:28 Date Recorded Body height Body mass index (BMI) Body weight Provider Name and Address Organization Details Last Updated DateTime 12/22/2024 177.8 cm 27.3 kg/m2 20634.55 g Karely Ramachandran [employer] 12/22/2024 10:04:44 Date Recorded Body height Body mass index (BMI) Body weight Provider Name and Address Organization Details Last Updated DateTime 01/22/2023 175.26 cm 32.5 kg/m2 19133.32 g CHRIS Arango [place] [facility] [place] [employer] [facility] 01/22/2023 14:27:08 Social History Question Answer Notes LastModified by Ruth Kunstadter [employer] Details LastModified Time Tobacco Smoking Status Current Every Day Smoker Not Available [facility] 08/14/2022 13:34:43 What Was The Date Of Your Most Recent Tobacco Screening? 12/22/2024 [email or web address] Information not available 12/22/2024 How Much Tobacco Do You Smoke? 0.25 PPD [id number] Information not available 08/14/2022 How Many Years Have You Smoked Tobacco? 30 [id number] Information not available 08/14/2022 Sex: Unknown Functional Status Question Answer Note LastModified by Ruth [employer]stad[employer] Details LastModified Time What is your level of alcohol consumption? Occasional [id number] Information not available 08/14/2022 Mental Status None recorded. Family History Relationship Description Onset Age of this Age Resolved Age Notes LastModified by Organization Details LastModified Time Father No current problems or disability [id number] Not available 08/14/2022 13:34:45 Mother No current problems or disability [id number] Not available 08/14/2022 13:34:45 Medical History Condition Response SKIN PROBLEMS Y DIABETES, TYPE Y CANCER: SPECIFY Y HEART ARRHYTHMIA Y Past Encounters Encounter ID Performer Location Encounter Start Date Encounter Closed Date Diagnosis/Indication Diagnosis SNOMED-CT Code Diagnosis ICD10 Code Diagnosis Note [id number] Chan [facility] [place] [address] [place] [address] 04/17/2021 00:00:00 04/17/2021 11:22:43 [id number] MD [facility] [place] [address] [place] [address] 07/17/2021 00:00:00 07/17/2021 09:17:08 [id number] MD [facility] [place] [address] [place] [address] 07/16/2022 00:00:00 07/16/2022 09:31:43 [id number] Chan Torres MD [facility] [place] [address] [place] [address] 10/22/2022 10:48:06 10/22/2022 13:57:51 Pain in finger of left hand 6676055296 29555 M79.645 Osteoarthr osis of the carpometacarpal joint of the thumb 95081271 M18.9 [id number] Chan Torres MD [facility] [place] [address] [place] [address] 11/19/2022 10:57:10 11/19/2022 11:27:31 Pain in left thumb 9940524941 102374 M79.645 Osteoarthr osis of the carpometacarpal joint of the thumb 10753000 M18.9 [id number] Hansel Osman MD [facility] [place] [address] [place] [address] 01/22/2023 14:24:48 01/22/2023 14:59:23 Pain in left thumb 3215705218 035646 M79.192 [id number] Hansel Osman MD [facility] [place] [address] [place] [address] 10/27/2024 09:30:25 10/27/2024 10:43:39 Pain of left shoulder region 7080502926 M25.512 Pain of le ft elbow joint 2970489446 3527975 M25.063 [id number] Hansel Osman MD [facility] [place] [address] [place] [address] 12/22/2024 10:02:36 12/22/2024 10:23:38 Pain of left shoulder region 2037091237 M25.512 Health Concerns Section Related Observation LastModified by Organization Detai ls LastModified Time None Recorded Concern Status LastModified by Organization Details LastModified Time None Recorded Advance Directives Directive None Recorded Payers Insurance Date Sequence Insurance Name Policy Number Policy Bailey Covered Member ID Bailey Member ID Guarantor Name 12/28/2024 1 [facility] [id number] Nirali Hammond [id number] Xander Hammond Notes Date Note Type Note Provider Name and Address Organization Details Recorded Time 10/22/2022 text/html 57-year-old male 2 weeks status post left CMC arthroplasty with LRTI on 10/09/22. patient has been doing well postoperatively and noted some cramping of his forearm, but his pain has been otherwise controlled. His postoperative splint has remained in place. HAYLEE Lopez [employer], [place], [address], [employer] 10/22/2022 13:26:55 11/19/2022 text/html 57-year-old male approximately 6 weeks status post left thumb CMC arthroplasty with LRTI on 10/09/2022. Patient has been doing well and has remained in his removable thumb spica brace. He continues to have swelling in his thumb and wrist. HAYLEE Lopez [employer], [address], [place], [address], [employer] 11/19/2022 12:26:13 01/22/2023 text/html 57-year-old male approximately 3 months status post left thumb CMC arthroplasty with LRTI performed on 10/09/2022. Patient is doing well and has transition to a home exercise program after completing his physical therapy. He states that he does not think that he is doing the exercises correctly and would like to try another course of physical therapy. He also notes having some pain over the 1st extensor compartment of his left wrist. HAYLEE Lopez [employer], [address], [place], [address], [employer] 01/22/2023 14:55:02
[2025-01-03 18:49] VITALS: BP 136/82; PULSE 77; RESP 16; TEMP 36.7; O2SAT 97
--- NOTE | 2025-01-03 19:01 | ED_ITS ---
HPI - Extremity Injury (Upper) General Chief Complaint: Extremity Injury, Upper Stated Complaint: RT Hand Finger Pain Time Seen by Provider: 01/03/25 18:55 Source: patient and RN notes reviewed History of Present Illness HPI narrative: Patient presents today complaining of an injury to the tip of his right thumb. He was camping yesterday and smashed it in a water pump. Denies numbness or tingling. Currently rates his pain 7/10 has been taking ibuprofen with some mild improvement. There is some nail involvement. Related Data Home Medications ?Medication ?Instructions ?Recorded ?Confirmed ?Last Taken ?Type omega-3 fatty acids 500 mg capsule 500 mg PO DAILY 02/01/23 02/27/24 01/29/23 History meloxicam 15 mg tablet mg PO 11/10/24 Unknown History Allergies Allergy/AdvReac Type Severity Reaction Status Date / Time No Known Allergies Allergy Verified 01/03/25 18:45 [facility] Past Medical History Medical History History of squamous cell carcinoma Removed from chest and face [place] (nonalcoholic steatohepatitis) Degenerative disc disease Kidney stones Hyperlipidemia Afib One time episode and has not recurred. Diverticulitis Tobacco use Tobacco use Surgical History Surgical History History of removal of pigmented skin lesion H/O hernia repair H/O colonoscopy with polypectomy History of appendectomy History of vasectomy History of removal of skin mole Family History Family History Mother Family history of schizophrenia Social History Social History Social History: The patient is and has 3 children. 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 His is the durable power compliance attorney for healthcare. He smokes approximately 7 cigarettes a day if that. He denies any alcohol marijuana or illicit drugs. His is the durable power compliance attorney for healthcare. Code status full code Smoking packs per day: 0.25 Smoking cigarettes per day: 5.0 Years smoked: 30 Smoking pack-years: 7.50 Smoking status: Current every day smoker Second hand tobacco smoke exposure: No Alcohol intake: never Substance use: never Substance use type: does not use Lack of Transportation: No Lack of Food: Never True Current Housing: I Have Housing Concerned About Future Housing: No Difficulty Paying Gas/Electric Bills: No Difficulty Paying for Meds: No Currently Unemployed: No Education: Bachelor's Degree Difficulty w/ Childcare or Family Care: No Spiritual care concerns: No Comments At time of signature, I have reviewed and agree with nursing past medical, surgical, social and family history unless otherwise noted. Please see nursing chart for further information. There is no relevant family history pertinent to the presenting complaint Exam Narrative: GENERAL: Well-appearing, well-nourished, and in no acute distress. HEAD: Normocephalic, atraumatic. EYES: EOMI. No redness or drainage. Conjunctivae normal. ENT: Mucous membranes pink and moist. NECK: Normal AROM. CHEST: No respiratory distress. EXTREMITIES: Right 1st finger: Ecchymosis and moderate edema to the distal phalanx with subungual hematoma over approximately proximal 50% of the nail. Tender to palpation. Distal sensation intact. Capillary refill normal. Range of motion of the finger does not elicit pain. SKIN: Warm, dry, no rash. Capillary refill normal. Normal skin turgor. NEURO: No focal deficits. Alert and oriented x3. Gait steady. PSYCH: Normal affect. No signs of depression or anxiety. Course Course Level of Care: Express Care Visit Vital Signs Vital signs: Vital Signs Temperature 98.0 F 01/03/25 18:49 Pulse Rate 77 01/03/25 18:49 Respiratory Rate 16 01/03/25 18:49 Blood Pressure 136/82 01/03/25 18:49 Pulse Oximetry 97 01/03/25 18:49 Oxygen Delivery Room Air 01/03/25 18:49 Temperature 98.0 F 01/03/25 18:49 Pulse Rate 77 01/03/25 18:49 Respiratory Rate 16 01/03/25 18:49 Blood Pressure 136/82 01/03/25 18:49 Pulse Oximetry 97 01/03/25 18:49 Oxygen Delivery Room Air 01/03/25 18:49 Reviewed Procedures Nail Trephination Nail Trephination #1: Nail Trephination Date: 01/03/25 Nail Trephination Time: 19:23 Location (finger): right and thumb Sterile prep: chlorhexidine Method of drainage: nail cautery Procedure successful: Yes Patient tolerated procedure: well Nail Trephination Comment: Dressed with Band-Aid MDM - Extremity Injury (Upper) MDM Narrative Medical decision making narrative: 59-year-old male patient presents today with a crush injury to his right thumb with swelling to the thumb and a moderate subungual hematoma. Rates his pain 7/10. No numbness or tingling. Full range of motion without pain. X-ray is negative for fracture. Subungual hematoma drained with electrocautery successfully. Patient declines splint for protection. Vital signs stable. Anticipatory guidance given. Differential Diagnosis Differential diagnosis: Likely other (Finger fracture, contusion, subungual hematoma) Imaging Data Radiologist's impression: ITS Impressions Finger X-Ray 01/03/25 19:21 IMPRESSION: No acute osseous finding in the right thumb. Critical Care Time Critical Care Time Critical Care Time: No Discharge Plan Discharge Clinical Impression: Contusion of finger of right hand Qualifiers: Encounter type: initial encounter Finger: thumb Damage to nail status: with damage Qualified Code(s): S60.111A - Contusion of right thumb with damage to nail, initial encounter Subungual hematoma of finger Qualifiers: Encounter type: initial encounter Qualified Code(s): S60.10XA - Contusion of unspecified finger with damage to nail, initial encounter Patient Disposition: Home Condition: Stable Instructions: Subungual Hematoma (ED) Additional Instructions: Your x-ray is negative for fracture. Blood has been drained from underneath your fingernail. It may continue to use blood tonight. Change Band-Aid as needed. Take Tylenol for pain if able. Elevate and ice the finger to help with swelling. Follow-up with your PCP with any concerns. Your blood pressure was elevated above 120/80 today at Urgent Care. This puts you above the threshold for follow up. Please schedule a followup visit with your personal physician as soon as possible, for further evaluation and treatment. Even blood pressure exceeding 120/80 may indicate pre-hypertension. Patient Language: Cymro Prescriptions: No Action meloxicam 15 mg tablet PO doxepin 25 mg capsule 25 mg PO QHS Qty: 30 0RF omega-3 fatty acids 500 mg Capsule 500 mg PO DAILY cholecalciferol (vitamin D3) 50 mcg (2,000 unit) capsule 50 mcg PO DAILY Qty: 30 0RF rosuvastatin 5 mg tablet See Rx Instructions .ROUTE .COMPLEX Qty: 90 1RF Dose Instruction: TAKE 1 TABLET BY MOUTH DAILY Rx Instructions: TAKE 1 TABLET BY MOUTH DAILY Mounjaro 12.5 mg/0.5 mL pen injector 12.5 mg subcut WEEKLY Qty: 2 0RF Follow-up/Referrals: Ernesto Herzog MD [Primary Care Provider] - Time of Disposition: 19:33
== END 2025-01-03 19:35 | disposition home or self-care (01) ==
PROVIDERS: Emergency Provider Nurse Practitioner; PCP Family Medicine
DX: S60.111A Contusion of right thumb with damage to nail, initial encounter (principal); W31.89XA Contact with other specified machinery, initial encounter; K75.81 Nonalcoholic steatohepatitis (NASH); E78.5 Hyperlipidemia, unspecified; I48.91 Unspecified atrial fibrillation; F17.210 Nicotine dependence, cigarettes, uncomplicated; Z85.828 Personal history of other malignant neoplasm of skin
CPT/HCPCS: 11740; 73140; 99213; G0463

== ENCOUNTER 2025-01-08 07:40 | Outpatient (CLI) | payer OTHER, SELFPAY ==
--- NOTE | ~2025-01-08 | MR_ITS ---
MRI of the left shoulder Technique: Axial proton-density fat-sat images, coronal proton density fat-sat and T2 fat-sat images, and sagittal T1-weighted and T2 fat-sat images were acquired. Clinical History: Pain, tingling Findings: There is dcqm-jb-hvxmuljr AC joint degenerative change, with small subacromial spur. Coraco clavicular, coracoacromial, and coracohumeral ligaments are intact. Supraspinatus and infraspinatus tendons are intact, without partial or full-thickness tear. Subscapul yordy tendon is intact. Tendon of the long head of the biceps is intact. No labral tear evident. Inferior glenohumeral ligament is intact. No degenerative change or effusion of the glenohumeral join t. No fluid distention of the subacromial/subdeltoid bursa. No muscle atrophy or edema. Impression: Zhzk-mh-pmemhvsi AC joint degenerative change. Reviewed, dictated and finalized at [facility]. Impression: Kgwn-mw-xffirspq AC joint degenerative change.
== END 2025-01-08 07:41 | disposition home or self-care (01) ==
LOC: MICIMG 07:40
PROVIDERS: PCP Family Medicine; Visit Provider Nurse Practitioner Family
DX: M19.012 Primary osteoarthritis, left shoulder (principal)
CPT/HCPCS: 73221

== ENCOUNTER 2025-01-10 08:34 | Outpatient (CLI) | payer OTHER, SELFPAY ==
--- NOTE | ~2025-01-10 | CT_ITS ---
CT Scan of the Chest without Contrast: Clinical Indication: Lung cancer screening, nicotine dependence Technique: Contiguous sections were acquired throughout the chest without intravenous contrast. Dose reduction technique was used on this scan by utilizing automated exposure control and iterative recon struction technique. The dose-length product (DLP) was 102.12 mGy-cm. COMPARISON: 04/24/2022 Findings: There is no evidence of any significant mediastinal, hilar or axillary lymphadenopathy. The mediastin al soft tissues appear normal. There is no evidence of pleural or pericardial effusion. The lungs are clear, aside from calcified right middle lobe granuloma. Images through the upper abdomen reveal no abnormalities. Impression: Lung RADS 1: Negative. [address] advised. Reviewed, dictated and finalized at location . Impression: Lung RADS 1: Negative. [address] advised.
--- OUTSIDE RECORDS SUMMARY | 2025-01-10 08:38 | XMS_ITS | Clinical Summary ---
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 CHOICE PLUS Care Teams Naphthalene Operator Helper Relationship Specialty Start Date End Date Bassem Craig MD [address] [facility] [address] [place] [address] PCP - General 11/30/15
--- OUTSIDE RECORDS SUMMARY | 2025-01-10 08:38 | XMS_ITS | Referral Summary ---
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
--- OUTSIDE RECORDS SUMMARY | 2025-01-10 08:41 | XMS_ITS | Encounter Summary ---
Author Organization [facility] Address [address] [place] [address] Care Team Providers Care Weekend Anchor Name Role Phone Bassem Craig MD Primary Care Provider [phone] Encounter Details Date Type Department Care Team (Late st Contact Info) Description 08/07/2023 Lab Requisition [facility] - DermPath Lab [address] [facility], [facility] [place] [address] Mani Medina MD [address] [place] [address] Social History Tobacco Use Types Packs/Day Years Used Date Smoking Tobacco: Every Day Cigarettes 0.4 20 Alcohol Use Standard Drinks/Week Comments Yes 3.3 (1 standard drink = 0.6 oz p ure alcohol) Sex and Gender Information Value Date Recorded Sex Assigned at Not on file Legal 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 Male 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 Gender Identity Not on file Sexual Orientation Not on file documented as of this encounter Plan of Treatment Not on file documented as of this encounter Procedures Procedure Name Priority Date/Time Associated Diagnosis Comments DERMATOPATHOLOGY Routine 08/05/2023 3:33 AM METAL FINISHER documented in this encounter Results * DERMATOPATHOLOGY (08/05/2023 3:33 AM METAL FINISHER) Case Report Dermatopathology Report Case: [id number] Authorizing Provider: Mani Medina MD Collected: 08/05/2023 03:33 AM Ordering Location: [facility] DermPath Lab Received: 08/07/2023 07:43 AM Pathologist: Johanna Yanez MD Specimen: Skin, left lat sup buttock 9:06 AM [facility] DERMATOPATHOLOGY LABORATORY Final Diagnosis Specimen A. SKIN, left lat sup buttock: LENTIGINOUS MELANOCYTIC NEVUS, COMPOUND TYPE, IRRITATED (D22.5) (see microscopic description) 9:06 AM [facility] DERMATOPATHOLOGY LABORATORY at [address] [facility] Clinical History R/O Inflamed vs Dysplastic nevus 9:06 AM [facility] DERMATOPATHOLOGY LABORATORY Gross Description Specimen A: Received is one formalin filled container labeled with the patient's name and designated left lat sup buttock. The specimen consists of a shave biopsy measuring 99j62x0 mm. Jar 0. 9:06 AM [facility] DERMATOPATHOLOGY LABORATORY Microscopic Description Specimen A. [...] and deeper sections were reviewed. 9:06 AM [facility] DERMATOPATHOLOGY LABORATORY Disclaimer An external and [...] purposes. Billing Codes Specimen Charges Stain Charges 31574 1 15726 1 9:06 AM [facility] DERMATOPATHOLOGY LABORATORY Embedded Images 9:06 AM [facility] DERMATOPATHOLOGY LABORATORY Pathology/Cytolo gy TISSUE SPECIMEN FROM SKIN / Unknown 08/05/2023 3:33 AM METAL FINISHER 08/07/2023 7:43 AM METAL FINISHER us Mani Medina MD LAB - PATHOLOGY/CYTOLOGY ORD ERABLES Final Result DERMATOPATHOLOGY LABORATORY [facility] - Department of Dermatology [facility] Specialized Medicine [address] [place] [address], [address] [phone] documented in this encounter Visit Diagnoses Not on filedocumented in this encounter Care Teams Weekend Anchor Relationship Specialty Start Date End Date Bassem Craig MD [address] [place] [address] PCP - General 10/09/17 documented as of this encounter
--- OUTSIDE RECORDS SUMMARY | 2025-01-10 08:41 | XMS_ITS | Encounter Summary ---
Author Organization [facility] Address [address] [place], [place] [address] [address] Care Team Providers Care Experimental Machinist Name Role Phone Bassem Craig MD Primary Care Provider [phone] Encounter Details Date Type Department Care Team (Late st Contact Info) Description 12/10/2017 Lab Requisition [facility] Care DermPath Lab [address] [place] [address] Mani Medina MD [address] [place] [address] Social History Tobacco Use Types Packs/Day Years Used Date Smoking Tobacco: Every Day Cigarettes 0.4 20 Alcohol Use Standard Drinks/Week Comments Yes 3.3 (1 standard drink = 0.6 oz p ure alcohol) Sex and Gender Information Value Date Recorded Sex Assigned at Not on file 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 Jar 0. 4:24 PM CDT DERMATOPATHOLOGY LABORATORY [...] determined by the Dermatopathology Laboratory at [facility]. These tests need not be, and therefore are not, approved by the [place] Food and Drug Administration. The tests are used for clinical purposes. Billing Codes Specimen Charges Stain Charges 20330 1 4:24 PM CDT DERMATOPATHOLOGY LABORATORY Embedded Images 4:24 PM CDT DERMATOPATHOLOGY LABORATORY Pathology/Cytolog y TISSUE SPECIMEN FROM SKIN / Unknown 12/09/2017 12/10/2017 12:02 PM CDT us Mani Medina MD LAB - PATHOLOGY/CYTOLOGY ORD ERABLES Final Result DERMATOPATHOLOGY LABORATORY [facility] - Department of Dermatology [address] [facility], [address]th [place] [address], [facility] [phone] documented in this encounter Visit Diagnoses Not on filedocumented in this encounter Care Teams Experimental Machinist Relationship Specialty Start Date End Date Bassem Craig MD [address] [place] [address] PCP - General 10/09/17 documented as of this encounter
--- OUTSIDE RECORDS SUMMARY | 2025-01-10 08:41 | XMS_ITS | Clinical Summary ---
Author Organization [facility] Address [address] [facility] [place] [address] Care Team Providers Care Kettle Firer Name Role Phone Bassem Craig MD Primary Care Provider [phone] Source Comments [facility] Affiliates and Associated Physician Practices is amultiple site organization consisting of ambulatory clinics and hospital sitesin [place], [place]. This disclosure is being madepursuant to the Care Everywhere program and may not contain all information available regarding this patient. 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 SPECIALIST Gender Identity Not on file Sexual Orientation Not on file Last Filed Vital Signs Vital Sign Reading Time Taken Comments Blood Pressure 123/77 04/29/2013 9:48 AM ELECTRONIC SECURITY SPECIALIST Pulse 80 04/29/2013 9:48 AM ELECTRONIC SECURITY SPECIALIST Temperature 36.9 C (98.5 F) 04/29/2013 9:48 AM ELECTRONIC SECURITY SPECIALIST Respiratory Rate 18 04/29/2013 9:48 AM ELECTRONIC SECURITY SPECIALIST Oxygen Saturation - - Inhaled Oxygen Concentration [...] patient's age to complete this topic Insurance [facility] Member Subscriber Plan / Payer (Ef fective 2012-Present) Name:Jayjay Hammond Relation to Subscriber:Spouse Name:NIRALI HESS Subscriber ID:Not on file Date of :1972 Payer ID:[id number] (NAIC) Type:HMO Address: [place] [id number] [facility] Care Teams Kettle Firer Relationship Specialty Start Date End Date Bassem Craig MD [address] [place] [address] PCP - General 10/09/17
--- OUTSIDE RECORDS SUMMARY | 2025-01-10 08:41 | XMS_ITS | Data Portability ---
Author Organization [place] [facility] Address [address] [place] [address] Care Team Providers Care Manhole Stripper Name Role Phone CHAN TORRES Orthopedic Surgeon [...] ng, Ra, Cervical Traction 2023 [address] [place], [address] [place] [address], [place], [address], 4 14:07:19 Procedures None recorded. Surgeries None [...] 3 weeks- Hotpacks, ultrasound, Phonophoresis, ROM, Strengthening, [place], Cervical Traction Referring Physician: Chan Torres, Orthopedic Surgery, Encounter Date: 11/06/2023 Results Created Date Observation Date Name Description Value Unit Range Abnormal Flag Note LastModifiedBy Organization Detail LastModifiedTime 11/07/19 24 11/06/2023 XR, shoul klaus, 2 or more view No observ ation record ed. [facility] [address], [place], [address], 11/17/2023 18:15:09 11/07/19 24 11/06/2023 XR, elbow , 3 or more view No observ ation record ed. [facility] [address], [place], [address], 11/17/2023 18:15:10 Result Notes None recorded. Problems Name Problem SNOMED Code Status Onset Date Resolution Date Notes Provider Name and Address Organization Details Recorded Time Localized, primary osteoarthri tis of the hand 940202748 Active 2022 [place] [address] [place] [address], [phone], [facility] 3 13:57:49 Pain of left elbow joint 1793719026547 9104 Active 2023 Jermain bartlett, [facility] 4 14:48:05 Pain of left shoulder joint 3422096689467 9109 Active 2023 Jermain bartlett, [facility] 4 14:50:00 Cervical radiculopat hy 80515614 Active 2023 Chan Torres MD [address] [place] [address], [phone], [facility] 4 12:57:58 Lateral epicondylit is of left humerus 8103588126403 00 Active 2023 [place] [address] [place] [address], [phone], [facility] 4 12:58:03 Arthritis of acromioclav icular joint 102077221 Active 2023 [place] [address] [place] [address], [phone], [facility] 4 12:58:07 Problem Notes None recorded. Medical [...] Updated DateTime 4 177.8 cm 30.4 kg/m2 41412.5 8 g 90 /min 96 % 96 % 116/91 mm[Hg] Petra Spencer [facility] 4 10:17:00 Date Recorded Body weight Heart rate Oxygen saturation Oxygen saturation in Arterial blood by Pulse oximetry Systolic And Diastolic Provider Name and Address Organization Details Last Updated DateTime 3 12262.8 1 g 100 /min 95 % 95 % 135/80 mm[Hg] Jermain Acuña [facility] 3 13:49:53 Social History Question Answer Notes LastModified by Organizat ion Details LastModified Time Tobacco Smoking Status Current Every Day Smoker Petra Spencer [facility] 11/06/2023 10:18:24 Do You Feel Hopeless Or [...] SNOMED-CT Code Diagnosis ICD10 Code Diagnosis Note [id number] Chan Torres MD [facility] [address] [address] 01/30/2023 12:17:23 01/30/2023 14:10:38 Localized, primary osteoarthritis of the hand 739765781 M19.049 patient will continue working with therapy for range of motion and strengthen ing. I will see him back in a few months for followup AP lateral and oblique x-rays of the operative hand. Patient can be activity as tolerated. [id number] Chan Torres MD [facility] [place] [address] [place] [address] 11/06/2023 10:08:32 11/06/2023 11:28:44 Pain of left shoulder joint 6953325019 9257648 M25.512 Pain of le ft elbow joint 6844639956 0621685 M25.522 Body mass index 30+ - obesity 097979853 Z68.30 Cervical radiculopathy 13977819 M54.12 We will send him to physical therapy to work on cervical traction and modalities 90% chance of improvemen t with therapy. He needs to avoid hyperexten reymundo and lateral bending to the side irritated with lifting activities . See him back in a few weeks for follow-up Lateral ep icondylitis of left humerus 3706237912 03550 M77.12 sterile technique standard protocol did kneeling and then injected 2 cc xylocaine 2 cc Kenalog over the lateral epicondyla r area. We will put him in therapy to work on Graston technique and stretches. Arthritis of acromioclavicular joint 583025065 M13.819 sterile technique standard protocol injected the left AC joint with 2 cc xylocaine 2 cc Kenalog. We will see him back in a few months for follow-up Health Concerns Section Related Observation LastModified by Organization Ina turner LastModified Time None Recorded Concern Status LastModified by Organization Details LastModified Time None Recorded Advance Directives Directive None Recorded Payers Insurance Date Sequence Insurance Name Policy Number Policy Bailey Covered Member ID Baiely Member ID Guarantor Name 11/05/2023 1 [facility] Xander Negrete [id number] Xander Negrete
--- OUTSIDE RECORDS SUMMARY | 2025-01-10 08:41 | XMS_ITS | Encounter Summary ---
Author Organization [facility] Address [address] [place] [address] Care Team Providers Care Street Cleaner Name Role Phone Bassem Craig MD Primary Care Provider [phone] Encounter Details Date Type Department Care Team (Late st Contact Info) Description 03/05/2023 Lab Requisition [facility] - DermPath Lab [address] [facility] [place] [address] Mani Medina MD [address] [place] [address] Social History Tobacco Use Types Packs/Day Years Used Date Smoking Tobacco: Every Day Cigarettes 0.4 20 Alcohol Use Standard Drinks/Week Comments Yes 3.3 (1 standard drink = 0.6 oz p ure alcohol) Sex and Gender Information Value Date Recorded Sex Assigned at Not on file 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 Gender Identity Not on file Sexual Orientation Not on file documented as of this encounter Plan of Treatment Not on file documented as of this encounter Procedures Procedure Name Priority Date/Time Associated Diagnosis Comments DERMATOPATHOLOGY Routine 03/04/2023 12:0 0 AM CDT documented in this encounter Results * DERMATOPATHOLOGY (03/04/2023 12:00 AM CDT) Case Report Dermatopathology Report Case: [id number] Authorizing Provider: Mani Medina MD Collected: 03/04/2023 12:00 AM Ordering Location: [facility] DermPath Lab Received: 03/05/2023 01:50 PM Pathologist: [...] characteristic determined by the Dermatopathology Laboratory at [facility], directed by Dr. Rusty Frost. These tests need not be, and therefore are not, approved by the [place] Food and Drug Administration. The tests are used for clinical purposes. Billing Codes Specimen Charges Stain Charges 47037 1 3 3:18 PM CDT DERMATOPATHOLOGY LABORATORY Embedded Images 3:18 PM CDT DERMATOPATHOLOGY LABORATORY Pathology/Cytolog y TISSUE SPECIMEN FROM SKIN / Unknown 03/04/2023 03/05/2023 1:50 PM CDT Mani Medina MD LAB - PATHOLOGY/CYTOLOGY ORD ERABLES Final Result DERMATOPATHOLOGY LABORATORY [facility] - Department of Dermatology [facility] Medicine [address] [place] [address], [address] [phone] documented in this encounter Visit Diagnoses Not on filedocumented in this encounter Care Teams Street Cleaner Relationship Specialty Start Date End Date Bassem Craig MD [address] [place] [address] PCP - General 10/09/17 documented as of this encounter
--- OUTSIDE RECORDS SUMMARY | 2025-01-10 08:41 | XMS_ITS | Data Portability ---
Author Organization [place] [facility] [place] [facility], Main Office Address [address] [place] [address] Care Team Providers Care Diesel Crane Operator Name Role Phone SLADE LANZA Primary Care Provider SLADE LANZA Referring Provider [phone] Assessment Encounter Date Assessment Date Assessment LastModified [...] elbow. Thanks 2024 025 MIKAYLA Myles, [address] [facility], [place], [address], 11/02/2024 14:27:08 occupatio nal therapist referral - Please schedule pt for L hand. Strengthe dae and home exercise program. Thanks 2022 023 [email or web address] [facility] [place] [facility], [address], [address], 02/12/2023 09:00:57 occupatio nal therapist referral - L-THUMB ROM, STRENGTHE N, MODALITIE S, HEP 2022 023 [email or web address] [facility] Occupational [facility], [address] [place], [address], 11/19/2022 12:08:23 Procedures injection /aspirati on joint/bur sa (PROC) 2024 025 [email or web address] 1 In-Office Order, Internal Use Only DO Not Attach Compendium DO Not Attach Compendium, Do Not Delete/merge, [id number] 12/22/2024 10:19:18 Surgeries None recorded. Imaging MRI, shoulder, w/o contrast - please provide patient with a disc, thanks 2024 [facility] [address], [address] [facility], [place], [address], 12/23/2024 15:05:16 XR, shoulder, 2 or more view 2024 025 price [facility] [place], [address] [facility] [address], [place], [address], 10/27/2024 14:09:26 XR, hand, 3 or more view 2022 023 jorge a [facility] [place], [address] [facility] [address], [place], [address], 11/19/2022 12:25:58 Medication Orders bupivacai ne HCl 0.5 % (5 mg/mL) injection solution 2024 025 [email or web address] [id number], [address] [facility], [place], [place], [id number], 12/22/2024 11:33:33 Kenalog 10 mg/mL suspensio n for injection 2024 025 [email or web address] [facility] #[id number], [address] [place], [place], [id number], 12/22/2024 11:33:33 meloxicam 15 mg tablet 2024 025 [email or web address] [facility] #[id number], [address] [facility], [place], [place], [id number], 10/27/2024 14:09:26 Patient TargetsNo targets recorded. Patient [...] [place] [address], [place], [address], 11/19/2022 12:25:57 11/06/19 24 xr shoul klaus lt 2V+ [facility] [address] [facility], [place] [address] Patien t Name: XANDER HAMMOND Access ion #: [id number] Sex: M : 1965 9 4 [...] 10 AM Page 1 [email or web address] [facility] (Imaging) [address] [place], [address], 02/05/2024 14:19:28 11/06/19 24 XR, elbow , 3 or more view [facility] [address] [place] [address] Patien t Name: XANDER HAMMOND ion #: [id number] Sex: M : 1965 9 4 [...] dyles. No signif icant joint effusi on. Freeborn ing soft tissue s are unrema rkable . IMPRES JIHAN: No eviden ce of acute bony abnorm ality. Electr onical ly Signed by: Shawna aguilar at 2023 09:14: 27 AM Page 1 [email or web address] [facility] (Imaging) [address] [place], [address], 02/05/2024 14:19:28 10/28/19 25 XR, shoul klaus, 2 or more view No observ ation record ed. [facility] [place] [address], [place], [address], 10/27/2024 11:56:39 Result Notes Documentation Provider Name and Address Organization Details Recorded Time Xr, Elbow, 3 Or More View : [facility] [address] [place], [place] [id number] Patient Name: XANDER HAMMOND Sex: M : [...] abnormality. Page 1 Berna Schroeder APRN [address] [facility], [place], [address], [facility] [employer] 02/05/2024 14:19:28 Problems Name Problem SNOMED Code Status Onset Date Resolution Date Notes Provider Name and Address Organization Details Recorded Time Lateral epicondyli tis 510916900 Active Not Available [employer] 13:34:55 Shoulder joint pain 161243024 Active Not Available [employer] 3 13:34:55 Bicipital tenosynovi tis 92940472 Active Not Available [facility] 3 13:34:55 Pain in finger of left hand 3519314518130 05 Active 2022 Karely Ramachandran RMA null, [place] [facility] 3 10:58:47 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 24102048 Active 2022 Karely Ramachandran RMA null, [place] [facility] 3 10:58:54 Pain in left thumb 6417535870702 100 Active 2022 Karely Ramachandran RMA null, [place] [facility] 3 10:59:57 Pain of left shoulder region Active 2024 Kaylen Triplett THERMAL CUTTING MACHINE OPERATOR null, [place] [facility] 5 09:59:08 Pain of left elbow joint 7546955175232 9104 Active 2024 Kaylen Triplett THERMAL CUTTING MACHINE OPERATOR null, [place] [facility] 5 09:59:19 Problem Notes None recorded. Procedures Surgical History Date Name Laterality Status Provider Name and Address Organization Details Recorded Time 12/23/19 25 Ortho - Cortisone Injection completed Judy Correa NP [address], [address], [facility] 12/24/2024 11:00:58 Hernia Repair completed Not Available [facility] 08/14/2022 13:34:45 [facility]endectomy completed [facility] 08/14/2022 13:34:45 Imaging Results None recorded. [...] in office inj 10/27 completed [facility] [phone] Not Available Not Available Not [...] Updated DateTime 10/22/2022 175.26 cm 32.5 kg/m2 71127.32 g Karely Ramachandran Elayne [employer] [facility] 10/22/2022 10:58:22 Date Recorded Body height Body mass index (BMI) Body weight Provider Name and Address Organization Details Last Updated DateTime 10/27/2024 177.8 cm 27.3 kg/m2 70591.55 g Kaylen Triplett CNA [employer] [facility] 10/27/2024 09:46:32 Date Recorded Body height Body mass index (BMI) Body weight Pain severity - 0-10 verbal numeric rating [Score] - Reported Provider Name and Address Organization Details Last Updated DateTime 11/19/2022 175.26 cm 32.5 kg/m2 75355.32 g 4 Karely Ramachandran Elayne [employer] [facility] 11/19/2022 10:59:31 Date Recorded Body height Body mass index (BMI) Body weight Pain severity - 0-10 verbal numeric rating [Score] - Reported Provider Name and Address Organization Details Last Updated DateTime 12/22/2024 177.8 cm 27.3 kg/m2 81667.55 g 6 Karely Ramachandran [facility] [email or web address] [facility] 12/22/2024 10:04:48 Date Recorded Body height Body mass index (BMI) Body weight Provider Name and Address Organization Details Last Updated DateTime 01/22/2023 175.26 cm 32.5 kg/m2 47542.32 g Karely Ramachandran [facility] 01/22/2023 14:27:08 Social History Question Answer Notes LastModified by [email or web address] Details LastModified Time Tobacco Smoking Status Current Every Day Smoker Not Available [employer] 08/14/2022 13:34:43 What Was The Date Of Your Most Recent Tobacco Screening? 12/22/2024 [email or web address] Information not available 12/22/2024 How Much Tobacco Do You Smoke? 0.25 PPD [id number] 26 Information not available 08/14/2022 How Many Years Have You Smoked Tobacco? 30 [id number] 26 Information not available 08/14/2022 Sex: Unknown Functional Status Question Answer Note LastModified by [email or web address] Details LastModified Time What is your level of alcohol consumption? Occasional [id number] Information not available 08/14/2022 Mental Status None recorded. Family History Relationship Description Onset Age of this Age Resolved Age Notes LastModified by Organization Details LastModified Time Father No current problems or disability [id number] [id number] Not available 08/14/2022 13:34:45 Mother No current problems or disability [id number] [id number] Not available 08/14/2022 13:34:45 Medical History Condition Response HEART ARRHYTHMIA Y SKIN PROBLEMS Y DIABETES, TYPE Y CANCER: SPECIFY Y Past Encounters Encounter ID Performer Location Encounter Start Date Encounter Closed Date Diagnosis/Indication Diagnosis SNOMED-CT Code Diagnosis ICD10 Code Diagnosis Note [id number] Chan Torres MD [facility] [place] [address] [place] [address] 04/17/2021 00:00:00 04/17/2021 11:22:43 [id number] Chan Torres MD [facility] [place] [address] [place] [address] 07/17/2021 00:00:00 07/17/2021 09:17:08 [id number] Chan Torres MD [facility] [place] [address] [place] [address] 07/16/2022 00:00:00 07/16/2022 09:31:43 [id number] Chan Torres MD [facility] [place] [address] [place] [address] 10/22/2022 10:48:06 10/22/2022 13:57:51 Pain in finger of left hand 6211204070 19206 M79.645 Osteoarthr osis of the carpometacarpal joint of the thumb 18642085 M18.9 [id number] Chan Torres MD [facility] [place] [address] [place] [address] 11/19/2022 10:57:10 11/19/2022 11:27:31 Pain in left thumb 4702741723 937050 M79.645 Osteoarthr osis of the carpometacarpal joint of the thumb 52692675 M18.9 [id number] Hansel Osman MD [facility] [place] [address] [place] [address] 01/22/2023 14:24:48 01/22/2023 14:59:23 Pain in left thumb 8252790844 798736 M79.371 [id number] Hansel Osman MD [facility] [place] [address] [place] [address] 10/27/2024 09:30:25 10/27/2024 10:43:39 Pain of left shoulder region 0938125299 M25.512 Pain of le ft elbow joint 7408816371 2074394 M25.603 [id number] Hansel Osman MD [facility] [place] [address] [place] [address] 12/22/2024 10:02:36 12/22/2024 10:23:38 Pain of left shoulder region 2417216710 M25.512 Health Concerns Section Related Observation LastModified by Organization Detai ls LastModified Time None Recorded Concern Status LastModified by Organization Details LastModified Time None Recorded Advance Directives Directive None Recorded Payers Insurance Date Sequence Insurance Name Policy Number Policy Bailey Covered Member ID Bailey Member ID Guarantor Name 12/28/2024 1 [facility] [id number] Nirali Hammond [id number] Xander Hammond
== END 2025-01-10 08:35 | disposition home or self-care (01) ==
PROVIDERS: PCP Family Medicine; Visit Provider Family Medicine
DX: Z12.2 Encounter for screening for malignant neoplasm of respiratory organs (principal); Z87.891 Personal history of nicotine dependence
CPT/HCPCS: 71271

== ENCOUNTER 2025-03-18 09:52 | Outpatient (CLI) | payer OTHER, SELFPAY ==
--- OUTSIDE RECORDS SUMMARY | 2025-03-18 10:03 | XMS_ITS | Clinical Summary ---
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 [employer] Care Teams Self Rising Flour Mixer Relationship Specialty Start Date End Date Bassem Craig MD PCP - General 11/30/15
--- OUTSIDE RECORDS SUMMARY | 2025-03-18 10:03 | XMS_ITS | Encounter Summary ---
Author Organization [facility] Address [address] [place] [address] Care Team Providers Care Survey Associate Name Role Phone Bassem Craig MD Primary Care Provider [phone] Encounter Details Date Type Department Care Team (Late st Contact Info) Description 08/07/2023 Lab Requisition 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 DermPath Lab Received: 08/07/2023 07:43 AM Pathologist: Johanna Yanez MD Specimen: Skin, left lat sup buttock 9:06 AM [facility] DERMATOPATHOLOGY LABORATORY Final Diagnosis Specimen A. SKIN, left lat sup buttock: LENTIGINOUS MELANOCYTIC NEVUS, COMPOUND TYPE, IRRITATED (D22.5) (see microscopic description) 9:06 AM [facility] DERMATOPATHOLOGY LABORATORY at [address] [facility] Clinical History R/O Inflamed vs Dysplastic nevus 9:06 AM [facility] DERMATOPATHOLOGY LABORATORY Gross Description Specimen A: Received is one formalin filled container labeled with the patient's name and designated left lat sup buttock. The specimen consists of a shave biopsy measuring 42s17o6 mm. Jar 0. 9:06 AM [facility] DERMATOPATHOLOGY LABORATORY Microscopic Description Specimen A. [...] and deeper sections were reviewed. 9:06 AM [facility] DERMATOPATHOLOGY LABORATORY Disclaimer An external and internal positive and negative controls are appropriate for the histochemical, immunohistochemical and immunofluorescence stain(s) in this case (if any), except where stated explicitly. The performance characteristics of the stain(s) cited in this report were developed and its performance characteristic determined by the Dermatopathology Laboratory at [facility], directed by Dr. Rusty Frost. These tests need not be, and therefore are not, approved by the [place] Food and Drug Administration. The tests are used for clinical purposes. Billing Codes Specimen Charges Stain Charges 28295 1 92940 1 9:06 AM [facility] DERMATOPATHOLOGY LABORATORY Embedded Images 9:06 AM [facility] DERMATOPATHOLOGY LABORATORY Pathology/Cytolo gy TISSUE SPECIMEN FROM SKIN / Unknown 08/05/2023 3:33 AM REAL ESTATE PROCESSOR 08/07/2023 7:43 AM REAL ESTATE PROCESSOR us Mani Medina MD LAB - PATHOLOGY/CYTOLOGY ORD ERABLES Final Result DERMATOPATHOLOGY LABORATORY [facility] - Department of Dermatology [facility] [address] [place] [address], [address] [phone] documented in this encounter Visit Diagnoses Not on filedocumented in this encounter Care Teams Survey Associate Relationship Specialty Start Date End Date Bassem Craig MD [address] [place] [address] PCP - General 10/09/17 documented as of this encounter
--- OUTSIDE RECORDS SUMMARY | 2025-03-18 10:03 | XMS_ITS | Clinical Summary ---
Author Organization [facility] Address [address] [place] [address] Care Team Providers Care Director Video Name Role Phone Unavailable Primary Care Provider [...] 2) 2017 COVID-19 Vaccine (2023-2 5 season) 2025 Meningococcal B Vaccine Aged Out No l onger eligible based on patient's age to complete this topic Meningococcal Vaccine Aged Out No ellis danielle eligible based on patient's age to complete this topic RSV Immunizations Under 20 Months Aged Out No longer eligible based on patient's age to complete this topic
--- OUTSIDE RECORDS SUMMARY | 2025-03-18 10:04 | XMS_ITS | Data Portability ---
Author Organization [place] - [facility], [facility] Vascular Address [address] [place] [address] Care Team Providers Care Supervising Editor News Reel Name Role Phone CHAN TORRES Orthopedic Surgeon [...] Hotpacks, ultrasound, Phonophores is, ROM, Strengtheni ng, Canadian, Cervical Traction 2023 024 MIKAYLA [place], [address] [place] [address], [place], [address], 4 14:07:19 Procedures None recorded. Surgeries None [...] 3 weeks- Hotpacks, ultrasound, Phonophoresis, ROM, Strengthening, Canadian, Cervical Traction Referring Physician: Chan Torres, Orthopedic Surgery, Encounter Date: 11/06/2023 Results Created Date Observation Date Name Description Value Unit Range Abnormal Flag Note LastModifiedBy Organization Detail LastModifiedTime 11/07/1911/06/2023 XR, shoul klaus, 2 or more view No observ ation record ed. [facility] [address], [place], [address], 11/17/2023 18:15:09 11/07/19 24 11/06/2023 XR, elbow , 3 or more view No observ ation record ed. [facility] [address], [place], [address], 11/17/2023 18:15:10 Result Notes None recorded. Problems Name Problem SNOMED Code Status Onset Date Resolution Date Notes Provider Name and Address Organization Details Recorded Time Localized, primary osteoarthri tis of the hand 537482776 Active 2022 [place] [address] [place] [address], [phone], [facility] 3 13:57:49 Pain of left elbow joint 2004914410565 9104 Active 2023 Jermain bartlett, [facility] 4 14:48:05 Pain of left shoulder joint 8277634120617 9109 Active 2023 Jermain bartlett, [facility] 4 14:50:00 Cervical radiculopat hy 01101314 Active 2023 Chan Torres MD [address] [place] [address], [address], [facility] 4 12:57:58 Left lateral elbow tendinopath y 0414437500267 00 Active 2023 Chan Torres MD [address] [place] [address], [address], [facility] 4 12:58:03 Arthritis of acromioclav icular joint 667768840 Active 2023 [place] [address] [place] [address], [address], [facility] 4 12:58:07 Problem Notes None recorded. [...] Updated DateTime 4 177.8 cm 30.4 kg/m2 81722.5 8 g 90 /min 96 % 96 % 116/91 mm[Hg] Petra Spencer [facility] 4 10:17:00 Date Recorded Body weight Heart rate Oxygen saturation Oxygen saturation in Arterial blood by Pulse oximetry Systolic And Diastolic Provider Name and Address Organization Details Last Updated DateTime 3 59437.8 1 g 100 /min 95 % 95 % 135/80 mm[Hg] Jermain Acñua [facility] 3 13:49:53 Social History Question Answer Notes LastModified by Organizat ion Details LastModified Time Tobacco Smoking Status Current Every Day Smoker Petra Spencer [facility] 11/06/2023 10:18:24 Do You Feel Hopeless [...] HEART VALVE DISORDERS N LUNG DISEASE/DISORDER N HIGH CHOLESTEROL / HYPERLIPIDEMIA Y HEARTBURN / REFLUX N HEPATITIS / LIVER DISEASE Y HEART DISEASE/HEART PROBLEMS N HYPERTENSION N ATRIAL FIBRILLATION N Past Encounters Encounter ID Performer Location Encounter Start Date Encounter Closed Date Diagnosis/Indication Diagnosis SNOMED-CT Code Diagnosis ICD10 Code Diagnosis IMO Codes Diagnosis Note [id number] Chan Torres MD [facility] [address] [address] 01/30/2023 12:17:23 01/30/2023 14:10:38 Localized, primary osteoarthritis of the hand 277614066 M19.049 patient will continue working with therapy for range of motion and strengthen ing. I will see him back in a few months for followup AP lateral and oblique x-rays of the operative hand. Patient can be activity as tolerated. [id number] Chan Torres MD [facility] [address] [place] [address] 11/06/2023 10:08:32 11/06/2023 11:28:44 Pain of left shoulder joint 0721520750 4766143 M25.512 Pain of le ft elbow joint 2293323823 8779736 M25.522 Body mass index 30+ - obesity 069937430 Z68.30 Cervical radiculopathy 55281002 M54.12 We will send him to physical therapy to work on cervical traction and modalities 90% chance of improvemen t with therapy. He needs to avoid hyperexten reymundo and lateral bending to the side irritated with lifting activities . See him back in a few weeks for follow-up Left later al elbow tendinopathy 0320829026 28456 M77.12 sterile technique standard protocol did kneeling and then injected 2 cc xylocaine 2 cc Kenalog over the lateral epicondyla r area. We will put him in therapy to work on Graston technique and stretches. Arthritis of acromioclavicular joint 259683480 M13.819 sterile technique standard protocol injected the left AC joint with 2 cc xylocaine 2 cc Kenalog. We will see him back in a few months for follow-up Health Concerns Section Related Observation LastModified by Organization Detzully ls LastModified Time None Recorded Concern Status LastModified by Organization Details LastModified Time None Recorded Advance Directives Directive None Recorded Payers Insurance Date Sequence Insurance Name Policy Number Policy Bailey Covered Member ID Bailey Member ID Guarantor Name 11/05/2023 1 [facility] Xander Negrete [id number] Xander Negrete Notes Date Note Type Note Provider Name and Address Organization Details Recorded Time 01/30/2023 text/html patient underwent a carpometacarpal arthroplasty approximately 3 months ago has a little bit of soreness which is typical at this point strength is improving gradually with therapy comes in today for follow-up Chan Torres MD [address] [place], [address], [facility] 01/30/2023 13:58:28 11/06/2023 text/html patient comes in today with left shoulder and left elbow pain been bothering him for a while now 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 Also recently has been having some soreness in his neck with a little tingling in his left thumb no history of any specific trauma. Chan Torres MD [address] [place], [address], [facility] 11/06/2023 12:59:07
--- OUTSIDE RECORDS SUMMARY | 2025-03-18 10:04 | XMS_ITS | Encounter Summary ---
Author Organization [facility] Address [address] [place], [place] [address] [address] Care Team Providers Care Supervisor Toy Assembly Name Role Phone Bassem Craig MD Primary Care Provider [phone] Encounter Details Date Type Department Care Team (Late st Contact Info) Description 12/10/2017 Lab Requisition [facility] Care DermPath Lab [address] [place] [address] Mani Medina MD [address] [place] [address] Social History Tobacco Use Types Packs/Day Years Used Date Smoking Tobacco: Every Day Cigarettes 0.4 20 Alcohol Use Standard Drinks/Week Comments Yes 3.3 (1 standard drink = 0.6 oz p ure alcohol) Sex and Gender Information Value Date Recorded Sex Assigned at Not on file 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 Jar 0. 4:24 PM CDT DERMATOPATHOLOGY LABORATORY [...] characteristic determined by the Dermatopathology Laboratory at [facility]. These tests need not be, and therefore are not, approved by the [place] Food and Drug Administration. The tests are used for clinical purposes. Billing Codes Specimen Charges Stain Charges 94487 1 4:24 PM CDT DERMATOPATHOLOGY LABORATORY Embedded Images 4:24 PM CDT DERMATOPATHOLOGY LABORATORY Pathology/Cytolog y TISSUE SPECIMEN FROM SKIN / Unknown 12/09/2017 12/10/2017 12:02 PM CDT us Mani Medina MD LAB - PATHOLOGY/CYTOLOGY ORD ERABLES Final Result DERMATOPATHOLOGY LABORATORY [facility] - Department of Dermatology [address] [facility] [address] [facility], [address]th [place] [address], [facility] [phone] documented in this encounter Visit Diagnoses Not on filedocumented in this encounter Care Teams Supervisor Toy Assembly Relationship Specialty Start Date End Date Bassem Craig MD [address] [place] [address] PCP - General 10/09/17 documented as of this encounter
--- OUTSIDE RECORDS SUMMARY | 2025-03-18 10:04 | XMS_ITS | Encounter Summary ---
Author Organization [facility] Address [address] [address] Care Team Providers Care Circuit Court Clerk Name Role Phone Bassem Craig MD Primary Care Provider [phone] Encounter Details Date Type Department Care Team (Late st Contact Info) Description 03/05/2023 Lab Requisition [facility] - DermPath Lab [address] [facility] [place] [address] Mani Medina MD [address] [place] [address] Social History Tobacco Use Types Packs/Day Years Used Date Smoking Tobacco: Every Day Cigarettes 0.4 20 Alcohol Use Standard Drinks/Week Comments Yes 3.3 (1 standard drink = 0.6 oz p ure alcohol) Sex and Gender Information Value Date Recorded Sex Assigned at Not on file 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 Gender Identity Not on file Sexual Orientation Not on file documented as of this encounter Plan of Treatment Not on file documented as of this encounter Procedures Procedure Name Priority Date/Time Associated Diagnosis Comments DERMATOPATHOLOGY Routine 03/04/2023 12:0 0 AM CDT documented in this encounter Results * DERMATOPATHOLOGY (03/04/2023 12:00 AM CDT) Case Report Dermatopathology Report Case: [id number] Authorizing Provider: Mani Medina MD Collected: 03/04/2023 12:00 AM Ordering Location: [facility] DermPath Lab Received: 03/05/2023 01:50 PM [...] characteristic determined by the Dermatopathology Laboratory at [facility], directed by Dr. Rusty Frost. These tests need not be, and therefore are not, approved by the [place] Food and Drug Administration. The tests are used for clinical purposes. Billing Codes Specimen Charges Stain Charges 86569 1 3 3:18 PM CDT DERMATOPATHOLOGY LABORATORY Embedded Images 3:18 PM CDT DERMATOPATHOLOGY LABORATORY Pathology/Cytolog y TISSUE SPECIMEN FROM SKIN / Unknown 03/04/2023 03/05/2023 1:50 PM CDT Mani Medina MD LAB - PATHOLOGY/CYTOLOGY ORD ERABLES Final Result DERMATOPATHOLOGY LABORATORY [facility] - Department of Dermatology [facility] Medicine [address] [place] [address], [address] [phone] documented in this encounter Visit Diagnoses Not on filedocumented in this encounter Care Teams Circuit Court Clerk Relationship Specialty Start Date End Date Bassem Craig MD [address] [place] [address] PCP - General 10/09/17 documented as of this encounter
--- OUTSIDE RECORDS SUMMARY | 2025-03-18 10:04 | XMS_ITS | Clinical Summary ---
Author Organization [facility] Address [address] [facility] [address] [place] [address] Care Team Providers Care Industrial Gas Servicer Helper Name Role Phone Bassem Craig MD Primary Care Provider [phone] Source Comments [facility],non-[facility] Affiliates and Associated Physician Practices is amultiple site organization consisting of ambulatory clinics and hospital sitesin [place], [place], [place] and [place]. This disclosure is being madepursuant to the Care Everywhere program and may not contain all information available regarding this patient. 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 Oxygen Saturation - - Inhaled Oxygen [...] 1986 ZOSTER VACCINE (1 of 2) 2017 DEPRESSION SCREENING 06/16/2024 COVID-19 VACCINE (1 - 2023-2 5 season) 2025 INFLUENZA VACCINE (#1) 2025 06/16/2010 HIB VACCINE [...] patient's age to complete this topic Insurance [facility] Member Subscriber Plan / Payer (Ef fective 2012-Present) Name:Jayjay Hammond Relation to Subscriber:Spouse Name:NIRALI HESS Subscriber ID:Not on file Date of :1972 Payer ID:[id number] (NAIC) Type:HMO Address: [place] [id number] [facility] Care Teams Industrial Gas Servicer Helper Relationship Specialty Start Date End Date Bassem Craig MD [address] [place] [address] PCP - General 10/09/17
[2025-03-18 10:09] LABS: Hematocrit 42.7 % (42.0-52.0); Hemoglobin 14.7 g/dL (14.0-18.0); Immature Granulocyte Percent A 0.4 % (0-0.5); Lymphocytes Absolute Auto 1.85 K/mm3 (0.9-3.2); Mean Corpuscular HGB Conc 34.4 g/dl (32-36); Mean Corpuscular Hemoglobin 31.3 pg (26-34); Mean Corpuscular Volume 91.0 fl (80-100); Nucleated Red Blood Cells Absolute Auto 0.000 K/mm3 (0.0-0.012); Nucleated Red Blood Cells Perc 0.0 % (0.0-0.2); Platelet Count Result 212 k/mm3 (150-375); Red Blood Count 4.69 M/mm3 (4.6-6.20); White Blood Count 7.3 K/mm3 (4.5-10.0)
[2025-03-18 10:25] LABS: Alanine Aminotransferase 48 U/L (6-50); Albumin Level 4.5 g/dL (3.5-5.1); Alkaline Phosphatase 51 U/L (38-126); Anion Gap 9 mmol/L (4-12); Aspartate Amino Transferase 33 U/L (17-59); Bilirubin,Total 0.6 mg/dL (0.2-1.3); Blood Urea Nitrogen 20 mg/dL (9-20); Calcium 8.8 mg/dL (8.4-10.2); Carbon Dioxide 25 mmol/L (22-30); Chloride 104 mmol/L (98-107); Cholesterol 134 mg/dL (0-200); Estimated Glomerular Filt Rate > 60; Glucose 102 mg/dL (65-110); HDL Direct 53 mg/dL; Potassium 4.5 mmol/L (3.4-5.0); Sodium 138 mmol/L (137-145); Total Protein 7.7 g/dL (6.3-8.2); Triglycerides 70 mg/dL (<150)
[2025-03-18 10:26] LABS: Hemoglobin A1C 5.8 % (<5.7)
[2025-03-18 12:17] LABS: MALB Creatinine Ratio 10.0 mg/g (0-30)
== END 2025-03-18 09:53 | disposition home or self-care (01) ==
LOC: ANHLAB 09:54
PROVIDERS: PCP Family Medicine; Visit Provider Family Medicine
DX: I48.91 Unspecified atrial fibrillation (principal); Z79.899 Other long term (current) drug therapy; E11.9 Type 2 diabetes mellitus without complications; E55.9 Vitamin D deficiency, unspecified; K76.0 Fatty (change of) liver, not elsewhere classified; G47.00 Insomnia, unspecified; Z00.00 Encounter for general adult medical examination without abnormal findings
CPT/HCPCS: 36415; 80053; 80061; 82043; 83036; 85025